=== PATIENT | female | born 1990 | race Caucasian/White ===

== ENCOUNTER 2022-05-06 20:29 | Outpatient (CLI) | payer BC, SELFPAY ==
[2022-05-06] VITALS (16 sets, daily range): BP systolic 128–143; BP diastolic 60–72; PULSE 63–78; RESP 18; TEMP 36.8; O2SAT 97–98
--- OUTSIDE RECORDS SUMMARY | 2022-05-06 20:34 | XMS_ITS | Clinical Summary ---
:1990 Author Organization [facility] [place] [address] Care Team Providers Name Role Phone Yaima Doyle Primary Care Provider [phone] Marlene Santiago DO Unavailable Allergies No known active allergies Medications Medication Sig Dispensed Refills Start End Date Status Date [id number] Chew by 0 Active fish oil ( mouth. 2 Gummy) 400 mcg-35 mg -25 mg-5 mg chew famotidine (PEPCID) Take 1 90 Tablet 3 Active 40 mg Tablet (40 2 tabletIndications: mg) by mouth Gastroesophageal once daily. reflux disease, unspecified whether esophagitis present aspirin (ECOTRIN) 81 Take 1 90 Tablet 2 Active mg enteric coated Tablet (81 2 tabletIndications: mg) by mouth care in once daily first trimester with a meal. FLUoxetine (PROZAC) Take 1 90 Capsule 3 Active 40 mg Capsule (40 2 capsuleIndications: mg) by mouth Moderate episode of every recurrent major morning. depressive disorder (HC) miscellaneous medical As directed. 1 Each 0 Active supply (Blood BP cuff. 2 Pressure Cuff) miscIndications: headache in third trimester docusate (COLACE) 100 Take 1 60 Capsule 0 0 Discontinued mg Capsule (100 2 22 (*Med capsuleIndications: mg) by mouth complete/Regimen Constipation, acute 2 times complete/Level daily if of care ch soy) needed for Constipation . meclizine (ANTIVERT) Take 1 30 Tablet 0 04/13/20 Discontinued 25 mg Tablet (25 2 22 (*Med tabletIndications: mg) by mouth complete/Regimen Nausea and vomiting 3 times complete/Level during daily if of care change) needed for Nausea/Vomit ing. sucralfate (CARAFATE) Take 1 120 Tablet 3 0 Discontinued 1 gram Tablet (1 g) 2 22 (*Med tabletIndications: by mouth 4 complete/Regimen Gastroesophageal times daily c omplete/Level reflux in before meals of care change) and at bedtime. Active Problems Problem Noted Date Maternal morbid obesity in second trimester, antepartu m 02/16/2022 COVID-19 affecting , antepartum 02/16/2022 Pap smear for cervical cancer screening 12/30/2021 Overview: 12/2021 NIL/ HPV negative. Plan: pap/ hpv due 12/2026 care in first trimester 12/14/2021 Overview: Formatting of this note is dif ferent from the original. DU by 7wk2d US (unsure LMP) Level 2US with echocardiogram ordered du e to BMI. Anesthesiology and OB consults ordered d ue to BMI MPP recommended Growth ultrasounds at 28 and 34 weeks due to BMI greater than 40. Growth US 30wks: Estimated weight 97th percentile. BPD greater than 98th percentile. -Weekly BPP/NSTs starting at 32 weeks. Patient declined COVID-19 vaccine. Repor ts she had mild COVID-19 beginning in November. Estimated Date of Delivery: 07/06/22 Patient's last menstrual period was 03/0 11/2021 (approximate). Last Tdap- 04/13/2022 Last Flu vaccine- 05/15/2015 Glucose (GTT) result- Component Latest Ref Rng & Units 04/13/2022 HEMOGLOBIN 12.0 - 16.0 g/dL 11.8 (L) MCV 80 - 100 fL 89 GLUCOSE,GESTATIONAL 65 - 140 mg/dL 131 TREPONEMA PALLIDUM Negative Negative 20 week US: IMPRESSION: Intrauterine at 20w 0d. presentation is Breech. EFW 374 grams, percentile: 81. Growth parameters and estimated we ight are appropriate for gestational age. No major structural anomalies identified . No markers for aneuploidy identified. The echocardiogram was read by MPP as normal. Normal Deepest Vertical Pocket of amniot ic fluid: 4.9 cm. Placental location: Anterior There is no evidence of placenta previa. The cervical length is 4.18 cm. ?? RECOMMENDATIONS: -Return to primary provider for continue d care. -No alterations in the delivery plan are necessary. -The option of amniocentesis was present ed. -Growth ultrasounds at 28 and 34 weeks d ue to BMI greater than 40. -Weekly BPP/NSTs starting at 32 weeks. -Orders were placed to schedule the rosa mmended follow up with MPP, if desired. The patient will discuss with her primary provider a t the next OB visit. No Known Allergies OB History Para Term AB Living 4 3 3 0 0 3 SAB IAB Ectopic Multiple Live Births 0 0 0 0 3 # Outcome Date GA Lbr Adrián/2nd Weight Sex Delivery Anes PTL Lv 4 Current 3 Term 07/23/15 40w2d 3.23 kg (7 lb 2 oz ) M Vag KARLA 2 Term 10/17/13 40w0d 3.49 kg (7 lb 11 o z) M Vag EPIDURAL N KARLA 1 Term 08/31/09 40w4d 3.46 kg (7 lb 10 o z) M Vag EPIDURAL N KARLA Create lab flowsheet for OB labs- Component Latest Ref Rng & Units 12/14/2021 022 12/14/2021 12:02 PM 12:02 PM 12:02 PM ANTIBODY SCREEN Negative Negative SPECIMEN EXPIRATION DATE/TIME 12/17/21 23:59 HEMOGLOBIN 12.0 - 16.0 g/dL 12.8 MCV 80 - 100 fL 90 RUBELLA IGG ANTIBODY Positive 1.14 CHLAMYDIA PROBE N GONORRHOEAE PROBE TREPONEMA PALLIDUM Negative Negative ABORH A Rh Positive HIV-1/HIV-2 ANTIBODY Non-Reactive Non-Reactive HBSAG Nonreactive Nonreactive Component Latest Ref Rng & Units 12/14/2021 12:06 PM ANTIBODY SCREEN Negative SPECIMEN EXPIRATION DATE/TIME HEMOGLOBIN 12.0 - 16.0 g/dL MCV 80 - 100 fL RUBELLA IGG ANTIBODY CHLAMYDIA PROBE Negative N GONORRHOEAE PROBE Negative TREPONEMA PALLIDUM Negative ABORH HIV-1/HIV-2 ANTIBODY Non-Reactive HBSAG Nonreactive Past Medical History: . Date ? ? Depression ? ? Morbid obesity with BMI of 40.0-44.9, adult (HC) 10/23/2014 ? ? Tobacco use disorder 12/06/2014 Past Surgical History: . Laterality Date ? ? NO PREVIOUS SURGERY No data on file. Problems (from 12/14/21 to pre sent) No problems associated with this episod krystin Rod RN.....12/17/2021 8:14 AM ELMER 02/04/2016 AHI-12 05/06/2016 Morbid obesity with BMI of 40.0-44.9, adult 10/23/2014 Encounter for supervision of normal in multi 04/17/2013 Major depression, recurrent 03/01/2011 Estimated Date of Delivery Comments Yes 07/06/2022 Based on Ultrasound Resolved Problems Problem Noted Date Resolved Date Tobacco use disorder 12/06/2014 12/14/2021 Supervision of normal first 05/08/2009 Encounters Date Type Specialty Care Team Description 04/27/2022 OB Encounter Marlene Santiago [facility] (30w) DO 04/27/2022 Travel 04/20/2022 Ancillary Procedure 04/20/2022 Travel 04/13/2022 OB Encounter Marlene [facility] (28 wks); DO Medication List Update (Not taking flu oxetine daily) 04/13/2022 Orders Only Lab, [facility] 04/13/2022 Travel 03/12/2022 OB Encounter Marlene [facility] (23 wks 3 DO days) 03/12/2022 Travel 02/16/2022 Hospital Encounter Marlene Santiago M aternal morbid obesity in second trimester, antepartum (HC) (Primary Dx); DO High-risk pregn nancy in second trimester; COVID-19 affect ing , antepartum 02/04/2022 OB Encounter Mar[facility] (18w2d) DO 02/04/2022 Travel from Last 3 Months Immunizations Name Administration Dates Next Due Hepatitis B (Peds) 04/12/2005 Influenza A (H1N1), Inactivated 05/27/2009 Influenza, IIV3 (Age >=3 years) 05/01/2012, 07/13/2010 Influenza, IIV4 05/15/2015, 04/22/2014 MMR 10/18/2013 Tdap 04/13/2022, 05/15/2015, 07/30/2013, 05/01/2012 Family History Medical History Relation Name Comments Cancer Maternal Grandfather lung Cancer Maternal Grandmother lung Diabetes Maternal Grandmother Hypertension Maternal Grandmother Relation Name Status Comments Maternal Grandfather Maternal Grandmother Social History Tobacco Use Types Packs/Day Years Used Date Former Smoker Cigarettes 0.5 Quit: 09/08/19 17 Smokeless Tobacco: Never Used Tobacco Cessation: Counseling Given: Yes Alcohol Use Standard Drinks/Week Comments Not Currently 0 (1 standard drink = 0.6 oz pure alcoho l) Alcohol Habits Answer Date Recorded How often do you have a drink containing alcohol? Monthly or less 12/27/2019 How many drinks containing alcohol do you have on a Not aske d typical day when you are drinking? How often do you have six or more drinks on one Not asked occasion? Comment: Not asked Estimated Date of Delivery Comments Yes 07/06/2022 Based on Ultrasound Sex Assigned at Date Recorded Not on file COVID-19 Exposure Response Date Recorded In the last 10 days, have you been in contact with No / Unsu re 04/27/2022 10:08 AM CDT someone who was confirmed or suspected to have Coronavirus/COVID-19? Obstetrics History Para Term AB IAB SAB Ectopic Multiple Living Live Births 4 3 3 3 3 Date Outcome GA Total Labor/2nd/3rd Weight Sex Delivery Anes PTL Karla A 1 A5 Name Clin Labor 08/31 Term 40w 3.46 kg M Vag Epidu N Betty /2009 4d (7 lb ral ng 10 oz) Complications: None 10/17/2013 Term 40w0d 3.49 kg (7 lb 11 oz) M Vag Epidural N Living Complications: None 07/23/2015 Term 40w2d 3.23 kg (7 lb 2 oz) M Vag Karla ing Current OB Episode Summary Episode Dates Estimated Date of Pregravid Weight TWG (As of ) Delivery 12/14/2021 - Present 07/06/2022 108.9 kg (240 lb) 9.57 kg ( 21 lb 1.6 oz) (05/06/2022) Date GA Fund Present FHR Mvmt BP Weight Edema Alb Glu Ket Dil/Eff/S ta 02/16/2022 20w0d Inpatient data not d isplayed here. See encounter summary. Progress Notes 04/27/2022 - 30w0d - Marlene Santiago , DO Here for routine visit. Concerns today: worried about large baby --recent US showed 97th percentile. She is worried will need c/s. Discussed EFW, accuracy of US and need for follow up imaging. Discussed indications for c/s vs t rial vaginal delivery. Will further disc uss after next US. Is already scheduled for 34wk follow up growth US. Had recent GTT that was negative but borderline at 131. Plan recheck GTT in 4 more weeks. Getting left sciatica pain. PHYSICAL THE RAPY ordered Fluoxetine: trying to be better at takin g regularly. Now taking better, missing 1-2 days a week now. Feels like mood 'little bit better' Headaches continues daily. Has had for y ears 'even before ' same as prior to she says. Takes tylenol and sometimes works. No vision changes. no abdominal pain. Headaches same as prior to she and report--reviewed if headaches changing, worsening or other symptoms, needs evaluated. Home blood pressure monitoring reviewed. Good FM. Got Blood pressure cuff and checking 137 /74 last Tue. Says hard to check as constantly going. [facility] recommended Growth ultrasounds at 28 and 34 weeks due to BMI greater than 40. Recent US 04/20/22 with estimated weight 97th percentile. BPD greater than 98th percentile.: has another growth US at 34 weeks. -Weekly BPP/NSTs starting at 32 weeks. Already had her anesthesiology consult. Warning and labor s/s reviewed. Typical remaining course reviewed. Follow up in 2 weeks with BPP, sooner if needed. We will repeat GTT in 4 more weeks as well 04/13/2022 - w0d - Marlene Santiago , DO Here for routine visit. Feels tired and emotional. Gets irritabl e quicker. Feels down and little things can make make cry. No SI. reports she is not great at taking her fluoxetine, maybe takes once a week at least. Discussed ways to try and remember to take daily. Reviewed importance of taking daily to help with her mood/irritability. Headaches daily. Tylenol sometimes helps . Says not drink much water. No vision changes. Discussed headaches in and if persistent, worsening or not typical for her, let us know. Reviewed hypert ension and preeclampsia are main concern s in . Will have her get BP cuff and start checking. See patient instructions No ctxs. Getting pubic bone pain she says. Discus sed. On exam, pubic bone was ttp. Kick counts discussed. TdaP today Declines flu shot. discussed recommendat ion to get and why we recommend and she declines MPP recs Growth ultrasounds at 28 and 34 weeks due to BMI greater than 40. US is scheduled for next week. -Weekly BPP/NSTs starting at 32 weeks. Will need anesthesiology consult arrange d at next visit. No longer required to have [facility] consult at [facility] unless BMI>50 Follow up 4wks, sooner if needed 03/12/2022 - 23w3d - Marlene Santiago , Here for visit. Had level 2 US and echocardiogram due t o BMI. MPP note reviewed and recommended: MPP recs Growth ultrasounds at 28 and 34 weeks due to BMI greater than 40. -Weekly BPP/NSTs starting at 32 weeks. I ordered and gave patient scheduling sh eet to get these scheduled today. Gets headaches when not and 'ab out same' now . Can get every other day day. Tylenol sometimes helps. Says not drink much water. No vision changes. Discussed headaches in and i f persistent, worsening or not typical f or her, let us know. Reviewed hypertension and preeclampsia are main concerns in after 24 weeks. Some suprapubic pain with walking only. +pubic symphysis ttp. No ctxs or bleeding. No RUQ pain. Good FM GTT and labs at next apt. Confirmed A+ Warning and labor s/s reviewed. Typical remaining course reviewed. Follow up 4wks with GTT/labs, sooner if needed 02/16/2022 - 20w0d - Ofelia Mata MD [facility] Ultrasound 02/16/22 Your patient had an ultrasound with [facility] on 02/16/22 The report is ready and can be found in the [facility]. The Impression from the report is below. Thank you for the opportunity to partici jose in the care of this josette patient. Ofelia Mata MD ............. ....... 02/16/2022 2:15 PM Referred By: MARLENE SANTIAGO DO Indications Code 20 weeks gestation of Z3A.20 Declined genetic screening BMI > 40 GERD, ELMER, depression *fluoxetine, caraf ate, famotidine COVID+ beginning of November 2021 Detailed & MPPE IMPRESSION: Intrauterine at 20w 0d. presentation is Breech. EFW 374 grams, percentile: 81. Growth parameters and estimated we ight are appropriate for gestational age. No major structural anomalies identified . No markers for aneuploidy identified. The echocardiogram was read by MPP as normal. Normal Deepest Vertical Pocket of amniot ic fluid: 4.9 cm. Placental location: Anterior There is no evidence of placenta previa. The cervical length is 4.18 cm. RECOMMENDATIONS: -Return to primary provider for continue d care. -No alterations in the delivery plan are necessary. -The option of amniocentesis was present ed. -Growth ultrasounds at 28 and 34 weeks d ue to BMI greater than 40. -Weekly BPP/NSTs starting at 32 weeks. -Orders were placed to schedule the rosa mmended follow up with [facility], if desired. The patient will discuss with her primary provider at the next OB visit. CONSULT: Present findings are reassuring. The pat ient was seen by the Perinatologist today. The previous ultrasound and the record was reviewed. The results of the ultrasound were communicated to the pa hector. The risks specific to morbid obes ity, including macrosomia, long labors, increased risk of IUFD, increased risk of Section and increased risk of anomalies were discussed. A e chocardiogram was done today because of the increased risk of congenital heart defects in babies of women with a BMI over 40. Growth ultrasounds at 28 weeks and 34 weeks will allow screening for growth abnormalities. Alternatives available for detecting fet al anomalies, aneuploidy and predicting developmental outcome for this were thoroughly discussed. The risks, benefits and limitations of maternal serum screening, ultrasound, and genetic amnio centesis were reviewed as needed with the patient. At the conclusion of our visit the patient declined any further genetic testing, being satisfied by the risk reduction of today's normal ultrasound study. New government regulations related to Cures act require that this note be released to the patient immediately, sometimes before the referring provider has been contacted. A portion of t he information was presented verbally to the patient. The remainder is submitted as background for the referring provider, to be discussed as needed. Medical Decision Making: Low Complexity 39116 Limited Diagnoses including two minor p roblems, with BMI>40. Moderate Data including review of prior ultrasound and review of prior external notes, ordering additional ultrasound/testing Low risk of morbidity or mortality to t he fetus from amniocentesis which was considered and declined. Services Provided: Procedures Code DETAIL ANATOMY & MPP ECHO 31376.0 ECHO REPORT: Normal Echocardiogram COMMENT The results of the echocardiogram were discussed with the parents. echocardiograms can not rule out some ventricular septal defects, persistent patent ductus arteriosus, atrial septal defect , some abnormalities of systemic and pul monary venous return, coarctation of the aorta, and minor valve abnormalities. Services Provided: Procedures Code US ECHOCARDIOGRAM 10027.0 US DOPPLER COLOR FLOW VELOCITY MAP 79847 .0 02/04/2022 - 18wkika - Marlene Santiago , DO Here for visit. Concerns: getting what sounds classic ro und ligament pain. Discussed. Nausea is better. Acid reflux, taking pepcid. Could try ca rafate and previously prescribed. Stopped working due to back she says. Hi story back problems and says was going to get injections but then got . Offered PHYSICAL THERAPY but says already tried. Taking tylenol as needed. Fluoxetine was started. Feels like just wants to lay in bed. Not feel depressed, just tired but wonders if could be her depression. Discussed importance staying active. Patient in agreement with increasing fluoxetine as previously was on 40mg. Baby aspirin previously discussed. She d id start this. Level 2 US with echocardiogram scheduled previously with perinatology for around 20-22wks due to body mass index. Discussed protocol at hospital for anest hesiology and ob consults in future due to BMI. These were ordered. She is not vaccinated for COVID-19. Revi ew reasons we recommend vaccination in and risks of COVID-19 in . She is not interested in COVID-19 vaccine. Reports she had COVID-19 previousl y in Jul and again this past November while kianna bernabe. Weight gain in reviewed. Follow up 4 weeks, sooner if needed 01/04/2022 - 13w6d - Marlene Santiago DO Here for routine visit. Nausea improving. No vomiting. Getting acid reflux. Not taking carafate prescribed--forgets. Big pills. Will start pepcid. No bleeding or abdominal pain. Thought maybe felt kick once. Keeps forgetting to take fluoxetine. Not really taking. Does feel very tired. says not that irritable lately. PHQ and HARMEET do show improvement. Discussed it is up if she wants to take the fluoxetine. She did not have any ?'s. Needs Pap smear today. no history abnorm al's. exam: Normal external genitalia. Urethra normal. Vaginal mucosa within normal limits. Cervix within normal limits. Pap smear obtained. Baby aspirin discussed. Reviewed reasons for recommendation and importance starting prior to 16wks. Discussed BMI and recommend for level 2 US with echocardiogram with perinatology. This was ordered for around 20-22wks. Need to also discuss protocol at [facility] for anesthesiology and ob consults in future due to BMI She is not vaccinated for COVID-19 and w e need to further review reasons we recommend vaccination in Warning and labor s/s reviewed. Typical remaining course reviewed. Follow up 4wks, sooner if needed 12/14/2021 - 10w6d - Marlene Santiago , FIRST OB VISIT HPI: Ely Rice is a 31 y.o. female at 10w2d with lofton intrauterine here today for a initial OB exam. She is here with Yogi who is FOC. This is their second child together. 2 prior to that so has 3 boys. Youngest is 6. Other two 8 and 12yo. Still nausous. Takes meclizine in evenin g. Not vomiting. Thinks staying hydrated. 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 Having acid reflux. Taking omeprazole. R eflux worse with Taking otc prenatals she prefers. Quit smoking 5 years ago. Estimated due date is Estimated Date of Delivery: 07/10/22 based on LMP. Nausea/Vomiting: yes Breast tenderness: yes Fatigue: yes Bleeding: no Taking vitamins: yes Options of sequential screen, cell-free DNA testing, amniocentesis were discussed. Patient will check with insurance if interested in pursuing testing. AMA: no Previous : no MENSTRUAL HISTORY LMP:Patient's last menstrual period was unsure. 'best guess October 03' she is uncertain but usually at beginning of month. Menses Every: regular, usually beginning of month. Menstrual cycle lasts: 5 days Menstrual Flow: normal Control at the time of conception: none. 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 overdue for Pap smear No history of STIs OB History Para Term AB Living 4 3 3 3 SAB IAB Ectopic Multiple Live Births 3 # Outcome Date GA Lbr Adrián/2nd Weight Sex Delivery Anes PTL Lv 4 Current 3 Term 07/23/15 40w2d 3.23 kg (7 lb 2 oz ) M Vag KARLA 2 Term 10/17/13 40w0d 3.49 kg (7 lb 11 o z) M Vag EPIDURAL N KARLA 1 Term 08/31/09 40w4d 3.46 kg (7 lb 10 o z) M Vag EPIDURAL N KARLA First says 'I was bleeding so I went in and they kept me' Broke water and she went into labor. was induced as did not want to miss Chri stmas she says. 2nd thought baby might be eduardo er so induced. 3rd says was induced as did no t want to miss Dean she says. Was OP until end she says. Then flipped and delivered. Past Medical History: . Date ? ? Depression ? ? Morbid obesity with BMI of 40.0-44.9, adult (HC) 10/23/2014 ? ? Tobacco use disorder 12/06/2014 No history MRSA or resistant infections Past Surgical History: . Laterality Date ? ? NO PREVIOUS SURGERY Family History Problem Relation Age of Onset ? ? Cancer Maternal Grandmother lung ? ? Diabetes Maternal Grandmother ? ? Hypertension Maternal Grandmother ? ? Cancer Maternal Grandfather lung Social History Tobacco Use ? ? Smoking status: Former Smoker Packs/day: 0.50 Types: Cigarettes Quit date: 09/08/2016 Years since quittin.2 ? ? Smokeless tobacco: Never Used Substance Use Topics ? ? Alcohol use: Not Currently Alcohol/week: 0.0 standard drinks Current Outpatient Medications Medication Sig ? ? docusate (COLACE) 100 mg capsule Take 1 Capsule (100 mg) by mouth 2 times daily if needed for Constipation. ? ? FLUoxetine (PROZAC) 20 mg capsule Take 1 Capsule (20 mg) by mouth every morning. ? ? meclizine (ANTIVERT) 25 mg tablet Take 1 Tablet (25 mg) by mouth 3 times daily if needed for Nausea/Vomiting. ? ? [id number]-[id number] oil ( Gummy) 400 mcg-35 mg -25 mg-5 mg chew Chew by mouth. ? ? sucralfate (CARAFATE) 1 gram tablet Take 1 Tablet (1 g) by mouth 4 times daily before meals and at bedtime. No current facility-administered medicat ions for this visit. Medications have been reviewed by me and are current to the best of my knowledge and ability. ALLERGIES Patient has no known allergies. MENTAL HEALTH HISTORY History of psychiatric diagnosis: Depres jose alfredo and anxiety. Had depression after 2nd . Not take anything for it. 'first and third was fine.' Current mental health provider: No but h as in past. Currently taking any psychiatric medicat ions: No stopped her fluoxetine prior to as felt like giving headaches once increased to 60mg and says 'always had trouble remembering to take'. When in creased to 60mg headaches started. has t ried other medications she says and per chart tried celexa, lexapro, sertraline, venlafaxine, wellbutrin. Patient says those did not work. 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 After about 6months, kids came back to live wi th them. No issues since except one of the other sons was having behavior issues in school about a year ago and the counselor notified CPS but they apparently cam e to house and then decided to close dominic e and nothing came of it. Kids of been with them for last few years. HARMEET-7 ANXIETY SCREENING 03/02/2021 12/15/19 22 HARMEET date (doc flow) 03/02/2021 12/14/2021 Nervous, anxious 2 2 Cannot stop worrying 2 2 Worry about different things 2 2 Cannot relax 2 2 Feeling restless 1 2 Easily annoyed/irritated 3 2 Afraid of awful event 2 2 Score 14 14 Severity moderate anxiety moderate anxie ty Some recent data might be hidden PHQ Depression Screening 03/02/2021 022 Date of PHQ exam (doc flow) 03/02/202111/29 1. Lack of interest/pleasure 2 - More th an half the days 2 - More than half the days 2. Feeling down/depressed 2 - More than half the days 2 - More than half the days PHQ-2 TOTAL SCORE 4 4 3. Trouble sleeping 3 - Nearly every day 2 - More than half the days 4. Decreased energy 3 - Nearly every day 2 - More than half the days 5. Appetite change 3 - Nearly every day 2 - More than half the days 6. Feelings of failure 2 - More than obdulio f the days 2 - More than half the days 7. Trouble concentrating 1 - Several day s 1 - Several days 8. Activity level 0 - Not at all 0 - Not at all 9. Hurting yourself 0 - Not at all 0 - N ot at all PHQ-9 TOTAL SCORE 16 13 PHQ-9 Severity Level moderately severe m oderate Functional Impairment very difficult ju ewhat difficult Some recent data might be hidden REVIEW OF SYSTEMS Comprehensive ROS complete and negative other than noted in HPI and on OB Questionnaire. PHYSICAL EXAM BP 111/75 (Cuff Site: Right Arm, Positio n: Sitting, Cuff Size: Adult Large) Pulse 70 Wt 111.6 kg (246 lb) LMP 10/03/2021 (Approximate) SpO2 98% No BMI 43.58 kg/m?? General: Pleasant female in no acute dis tress, alert and appropriate HEENT: wearing mask Neck: No lymphadenopathy or thyromegaly Heart: Regular rate and rhythm Lungs: Clear tissue bilaterally deferred to next apt Extremities: No edema Skin: No concerning lesions Psych: normal affect Ultrasound #1: on 11/19/21 = 7w2d IUP DU: DU at 07/16/22 by 7wk US as LMP un sure ASSESSMENT/PLAN Normal first visit. 1. Discussed orientation,general information,lifestyle,nutrition,exercise,warning signs,resources,lab testing,risk screening. Questions answered. 2. Typical remaining course rev iewed. 3. Labor signs/warning signs reviewed. 4. Appropriate weight gain during pregna ncy and healthy eating/exercise reviewed at length. 5. Ultrasound for dating reviewed--will change DU to US dating due to unsure LMP 6. labs ordered. 7. discussed risks risk screening. The a re not currently interested but cane let me know if that changes. Discussed [place] and checking with insurance. 8. Obesity: discussed with BMI > 40 rosa mmend level 2 US with echocardiogram around 20wks and growth US around 28-32 weeks typically recommended. Will also need to talk about anesthesiology and OB consults which are recommended per L&D protocol. 9. Depression/anxiety: previously tried multiple medications as above--only felt like fluoxetine helped--see above history. Discussed there are risks vs benefits vs SSRI's in but overall felt to be safe in and there are ri sks of untreated anxiety and depression. She was interested in restarting. Will start 20mg daily. Recheck PHQ/HARMEET at follow up 10. History CPS involvement as above: di scussed with their hx with CPS involvement will let [facility] [employer] know about new and verify there is nothing we need to do now that she is pre gnant again. I did call and tell [facility] social media designer that patient is . I do not currently have particular concerns except thought with history of CPS involvement should let them know she was . 11. due for Pap smear next time however we went over on time today so will defer until next apt. 12: t/c low dose aspirin prior 16wks wit h two RF's (obesity and socioeconomic status) Followup in 4 weeks with Pap smear and a nxiety/depression follow up as well, sooner if needed ASPIRIN CANDIDATE EVALUATION One or more of the following: ?? Previous with preeclampsia, es pecially early onset and with and adverse outcome. Multifetal gestation Chronic hypertension Type 1 or 2 diabetes Chronic kidney disease Autoimmune disease (antiphospholipid syn drome, systemic lupus erythematosus) ?? Two or more of the following: ?? Nulliparity Obesity (body mass index > 30 kg/m2) Family history of preeclampsia in mother or sister Age greater than or equal to 35 years Sociodemographic characteristics (Maribel n Sudanese, low socioeconomic level) Personal risk factors (eg, history of lo w weight or small for gestational age, previous adverse outcome, > 10 year interval) Total time preparing to see this patient , [id number] time, and coordinating care time on the same calendar date: 63 minutes. ?? Last Filed Vital Signs Vital Sign Reading Time Taken Comments Blood Pressure 126/82 04/27/2022 10:17 AM CDT Pulse 79 04/27/2022 10:17 AM CDT Temperature 36.6 ??C (97.9 ??F) 11/05/2021 10:58 AM CDT Respiratory Rate 16 10/24/2020 12:50 PM CDT Oxygen Saturation 96% 04/27/2022 10:17 AM CDT Inhaled Oxygen Concentration - - Weight 118.4 kg (261 lb 1.6 oz) 04/27/2022 10:17 AM CDT Height 160 cm (5' 3) 11/17/2021 8:11 AM CDT Body Mass Index 46.25 11/17/2021 8:11 AM CDT Plan of Treatment Upcoming Encounters Date Type Specialty Care Team Description 05/11/2022 OB Encounter Marlene Santiago DO [address] [place], [place] [address] (Wo rk) 05/11/2022 Ancillary Procedure 05/18/2022 Ancillary Procedure 05/25/2022 Orders Only Lab, [place] 05/25/2022 OB Encounter Marlene Santiago DO [address] [place], [place] [address] (Wo rk) 05/25/2022 Ancillary Procedure 06/01/2022 Ancillary Procedure 06/08/2022 OB Encounter Marlene Santiago DO [address] [place] [address] (Wo rk) 06/08/2022 Ancillary Procedure 06/15/2022 OB Encounter Marlene Santiago DO [address] [place] [address] (Wo rk) 06/15/2022 Ancillary Procedure 06/22/2022 OB Encounter Marlene Santiago DO [address] [facility] [place] [address] (Wo rk) 06/22/2022 Ancillary Procedure 06/29/2022 OB Encounter Marlene Santiago DO [address] [facility] [place] [address] [phone] (Wo rk) 06/29/2022 Ancillary Procedure 07/06/2022 OB Encounter Marlene Santiago DO [address] [facility] [place] [address] (Wo rk) 07/06/2022 Ancillary Procedure Health Maintenance Due Date Last Done Comments COVID-19 vaccine series (#1) 1990 Influenza for age 9-49 04/01/2022 05/15/2015, 04/22/2014, 05/01/2012, Additional history exists BMI (ht and wt on same day) for 11/16/2022 11/16/2021, 10/30, age 18+ 06/10/2021, Additional history exists Depression screening for age 12+ 01/04/2023 01/04/2022, , 03/02/2021, Additional history exists Pap test for age 21-65 01/04/2027 01/04/2022, 01/04/2022, 04/17/2013, Additional history exists Tetanus booster 04/13/2032 04/13/2022, 05/15/2015, 07/30/2013, Additional history exists Hepatitis C screening for age Completed 11/20/2014 18-79 Tdap Completed 04/13/2022, 05/15/2015, 07/30/2013, Additional history exists Procedures Procedure Name Priority Date/Time Associated Comments Diagnosis US OB FOLLOW UP ANY TRI Routine 04/20/2022 10:20 care in Results for this SINGLE TA AM CDT second trimester procedure are in Obesity in the results section. TREPONEMA PALLIDUM Routine 04/13/2022 9:56 AM care in Results for this CDT second trimester procedure a re in the results section. HEMOGLOBIN Routine 04/13/2022 9:56 AM care in Resul ts for this CDT second trimester procedure a re in the results section. GLUCOSE,GESTATIONAL Routine 04/13/2022 9:56 AM care i n Results for this CDT second trimester procedure a re in the results section. US ECHOCARDIOGRAM Routine 02/16/2022 2:23 PM High-risk Results for this CDT in procedure are i n second trimester the results section. US OB DETAIL Routine 02/16/2022 2:23 PM High-risk Res ults for this ANATOMY SINGLE CDT in procedure are in second trimester the results section. from Last 3 Months Results US OB FOLLOW UP ANY TRI SINGLE TA (04/20/2022 10:20 AM CDT) Anatomical Region Laterality Modality , 2or 3 TRIMESTER Ult rasound Specimen (Source) Anatomical Collection Method Collection Time Re ceived Time Location / / Volume Laterality 04/20/2022 11:20 AM CDT Impressions 04/20/2022 11:20 AM CDT Sonographic gestational age 31 weeks 2 days and sonographic due date 06/20/2022. Sonographic age is 16 days ahead of the clinical age. Estimated weight 97th percentile. BPD greater than 98th percentile. Dictated by Justin Rose MD @ Apr 20 2 022 11:20AM (Electronically Signed) ?? Narrative 04/20/2022 11:20 AM CDT For Patients: ??As a result of the Cures Act, medical imaging exams and procedure report s are released immediately into your [facility] medical record. ??You may view this report before your referring provider. ??If you have questions, please contact your health care provider. INDICATION: Third trimester scan, evaluate growth. COMPARISON: 02/16/2022 TECHNIQUE: Real time alex scale imaging of the fetu s was performed as well as color Doppler and spectral Doppler analysis of the umbilical artery. FINDINGS: Sonographic imaging demonstrates a singl e living intrauterine gestation. ??Fetus demonstrates a regular cardiac rate of 146 beats per minute. ??Fetus has a vertex position. The placenta lies anteriorly without evidence of placenta previa. ??A mniotic fluid volume appears normal and there is a single deepest vertical pocket: 8.3 cm. The estimated weight is 1702gm which lies at the 97th %. ??On the prior OB ultrasound exam dated 02/17/20 22 the estimated weight was at the 85th%. BPD greater than 98th percentile. HC 65th percentile. AC 97th percentile. FL 64th percentile. The HC/AC ratio simon ures 1.01 range (0.99-1.21). There is ad equate diastolic blood flow within the umbilical artery. ??The S/D ratio measures 3.0. Procedure Note Justin Rose MD - 04/20/2022For matting of this note might be different from the original. For Patients: As a result of the Cures Act, medical imaging exams and procedure reports are released immediately into your electronic medical record. You may view this report before your referring provider. If you have questions, please contact yo health care provider. INDICATION: Third trimester scan, evaluate growth. COMPARISON: 02/16/2022 TECHNIQUE: Real time alex scale imaging of the fetu s was performed as well as color Doppler and spectral Doppler analysis of the umbilical artery. FINDINGS: Sonographic imaging demonstrates a singl e living intrauterine gestation. Fetus demonstrates a regular cardiac rate of 146 beats per minute. Fetus has a vertex position. The placenta lies anteriorly without evidence of placenta previa. Amniotic fluid volume a ppears normal and there is a single deepest vertical pocket: 8.3 cm. The estimated weight is 1702gm which lies at the 97th %. On the prior OB ultrasound exam dated 02/16/2022 the estimated weight wa s at the 85th%. BPD greater than 98th percentile. HC 65th percentile. AC 97th percentile. FL 64th percentile. The HC/AC ratio measures 1.01 range (0.99-1.21). There is adequate diastolic blood flow within the umbilical artery. The S/D ratio measures 3.0. IMPRESSION: Sonographic gestational age 31 weeks 2 d ays and sonographic due date 06/20/2022. Sonographic age is 16 days ahead of the clinical age. Estimated weight 97th percentile. BPD greater than 98th percentile. Dictated by Justin Rose MD @ Apr 20 2 022 11:20AM (Electronically Signed) Marlene Santiago DO US TREPONEMA PALLIDUM (04/13/2022 9:56 AM CDT) Analysis Performed At Patho logist Time Signature TREPONEMA Negative Negative 04/14/2022 [facility] PALLIDUM 11:14 AM CDT [facility] Specimen Anatomical Collection Method / Collection Time Recei bebo Time (Source) Location / Volume Laterality Blood BLOOD SPECIMEN / Venipuncture / 04/13/2022 9:56 2021 9:59 Unknown Unknown AM CDT AM CDT Marlene Santiago DO SEND OUTS Performing Organization Address City/State/ZIP Code Phon e Number [facility] [address] [place] [address] LABORATORY-[facility]EN[facility] 2000 LABORATORY (ABNORMAL) HEMOGLOBIN (04/13/2022 9:56 AM CDT) P athologist Signature HEMOGLOBIN 11.8 (L) 12.0 - 04/13/2022 [facility] 16.0 g/dL 10:05 AM CDT [facility] MCV 89 80 - 100 04/13/2022 [facility] fL 10:05 AM CDT [facility] Specimen Anatomical Collection Method / Collection Time Recei bebo Time (Source) Location / Volume Laterality Blood BLOOD SPECIMEN / Venipuncture / 04/13/2022 9:56 2021 9:59 Unknown Unknown AM CDT AM CDT Marlene [facility] Performing Organization Address City/State/ZIP Code Phon e Number [facility] [address] [place] [address] GLUCOSE,GESTATIONAL (04/13/2022 9:56 AM CDT) athologist Signature GLUCOSE,GESTAT 131 65 - 140 04/13/2022 [facility] IONAL mg/dL 10:08 AM CDT [facility] Specimen Anatomical Collection Method / Collection Time Recei bebo Time (Source) Location / Volume Laterality Blood BLOOD SPECIMEN / Venipuncture / 04/13/2022 9:56 2021 9:59 Unknown Unknown AM CDT AM CDT Marlene [facility] Performing Organization Address City/State/ZIP Code Phon e Number [facility] [address] [place] [address] US ECHOCARDIOGRAM (02/16/2022 2:23 PM CDT) Anatomical Region Laterality Modality HEART Ultrasound Specimen (Source) Anatomical Collection Method Collection Time Re ceived Time Location / / Volume Laterality 02/16/2022 2:21 PM CDT Narrative 02/16/2022 3:14 PM CDT Normal Echocardiogram COMMENT The results of the echocardiogram were discussed with the parents. ?? echocardiograms can not rule out some ventricular septa l defects, persistent patent ductus arteriosus, atrial septal defect, some abnormalities of sys temic and pulmonary venous return, coarctation of the aorta, and minor valve abnormalities. Services Provided: Procedures Code US ECHOCARDIOGRAM 40976.0 US DOPPLER COLOR FLOW VELOCITY MAP 34840 .0 Procedure Note Ofelia Mata MD - 02/16/2022 Normal Echocardiogram COMMENT The results of the echocardiogram were discussed with the parents. echocardiograms can not rule out some ventricular septa l defects, persistent patent ductus arteriosus, atrial septal defect, some abnormalities of sys temic and pulmonary venous return, coarctation of the aorta, and minor valve abnormalities. Services Provided: ProceduresCode US [id number] US DOPPLER COLOR FLOW VELOCITY [id number]. 0 Marlene Santiago DO US US OB DETAIL ANATOMY SINGLE (02/16/2022 2:23 PM CDT) Anatomical Region Laterality Modality , 2or 3 TRIMESTER Ult rasound Specimen (Source) Anatomical Collection Method Collection Time Re ceived Time Location / / Volume Laterality 02/16/2022 2:18 PM CDT Narrative 02/16/2022 3:15 PM CDT Referred By: MARLENE ??JOHNNY ??DO ? Indications Code 20 weeks gestation of Z3A.20 Declined genetic screening BMI > 40 GERD, ELMER, depression *fluoxetine, caraf ate, famotidine COVID+ ??beginning of November 2021 Detailed & MPPE IMPRESSION: Intrauterine at 20w 0d. presentation is Breech. EFW 374 grams, percentile: 81. ?? Growth parameters and estimated we ight are appropriate for gestational age. ? No major structural anomalies identified . No markers for aneuploidy identified. The echocardiogram was read by MPP as normal. Normal Deepest Vertical Pocket of amniot ic fluid: 4.9 cm. Placental location: Anterior There is no evidence of placenta previa. The cervical length is 4.18 cm. ?? RECOMMENDATIONS: -Return to primary provider for continue d care. -No alterations in the delivery plan are necessary. -The option of amniocentesis was present ed. -Growth ultrasounds at 28 and 34 weeks d ue to BMI greater than 40. -Weekly BPP/NSTs starting at 32 weeks. -Orders were placed to schedule the rosa mmended follow up with MPP, if desired. The patient will discuss with her primary provider a t the next OB visit. CONSULT: Present findings are reassuring. ??The p atient was seen by the Perinatologist today. ??The previous ultrasound and the rec ord was reviewed. ??The results of the ultrasound were communicated to the patient. The risks s pecific to morbid obesity, including macrosomia, long labors, increased risk of IUFD, increase d risk of Section and increased risk of anomalies were discussed. A echoca rdiogram was done today because of the increased risk of congenital heart defects in babies of women with a BMI over 40. Growth ultrasounds at 28 weeks and 34 weeks will allow screening for growth abnormalities. ?? Alternatives available for detecting fet al anomalies, aneuploidy and predicting developmental outcome for this were thorough ly discussed. ??The risks, benefits and limitations of maternal serum screening, ultrasound, an d genetic amniocentesis were reviewed as needed with the patient. ??At the conclusion of our visit the patient declined any further genetic testing, being satisfied by the risk reduction of today's normal ultrasound study. New government regulations related to Cures act require that this note be released to the patient immediately, ju etimes before the referring provider has been contacted. ??A portion of the informatio n was presented verbally to the patient. ??The remainder is submitted as background for the refer ring provider, to be discussed as needed. Medical Decision Making: Low Complexity 06680 ?Limited Diagnoses including two mi nor problems, with BMI>40. ?Moderate Data including review of prior ultrasound and review of prior external notes, ordering additional ultrasound/testing ?Low risk of morbidity or mortality to the fetus from amniocentesis which was considered and declined. Services Provided: Procedures Code DETAIL ANATOMY & [facility] ECHO 12423.0 Procedure Note Ofelia Mata MD - 02/16/2022 Referred By: MARLENE SANTIAGO DO IndicationsCode 20 weeks gestation of [id number] Declined genetic screening BMI > 40 GERD, ELMER, depression *fluoxetine, caraf ate, famotidine COVID+ beginning of November 2021 Detailed & MPPE IMPRESSION: Intrauterine at 20w 0d. presentation is Breech. EFW 374 grams, percentile: 81. Growth parameters and estimated we ight are appropriate for gestational age. No major structural anomalies identified . No markers for aneuploidy identified. The echocardiogram was read by MPP as normal. Normal Deepest Vertical Pocket of amniot ic fluid: 4.9 cm. Placental location: Anterior There is no evidence of placenta previa. The cervical length is 4.18 cm. RECOMMENDATIONS: -Return to primary provider for continue d care. -No alterations in the delivery plan are necessary. -The option of amniocentesis was present ed. -Growth ultrasounds at 28 and 34 weeks d ue to BMI greater than 40. -Weekly BPP/NSTs starting at 32 weeks. -Orders were placed to schedule the rosa mmended follow up with MPP, if desired. The patient will discuss with her primary provider a t the next OB visit. CONSULT: Present findings are reassuring. The pat ient was seen by the Perinatologist today. The previous ultrasound and the rec ord was reviewed. The results of the ultrasound were communicated to the patient. The risks s pecific to morbid obesity, including macrosomia, long labors, increased risk of IUFD, increase d risk of Section and increased risk of anomalies were discussed. A echoca rdiogram was done today because of the increased risk of congenital heart defects in babies of women with a BMI over 40. Growth ultrasounds at 28 weeks and 34 weeks will allow screening for growth abnormalities. Alternatives available for detecting fet al anomalies, aneuploidy and predicting developmental outcome for this were thorough ly discussed. The risks, benefits and limitations of maternal serum screening, ultrasound, an d genetic amniocentesis were reviewed as needed with the patient. At the conclusion of our vi sit the patient declined any further genetic testing, being satisfied by the risk reduction of today's normal ultrasound study. New government regulations related to Cures act require that this note be released to the patient immediately, ju etimes before the referring provider has been contacted. A portion of the information was presented verbally to the patient. The remainder is submitted as background for the refer ring provider, to be discussed as needed. Medical Decision Making: Low Complexity 70115 Limited Diagnoses including two minor p roblems, with BMI>40. Moderate Data including review of prior ultrasound and review of prior external notes, ordering additional ultrasound/testing Low risk of morbidity or mortality to t he fetus from amniocentesis which was considered and declined. Services Provided: ProceduresCode DETAIL ANATOMY & [facility]PP [id number] Marlene Santiago DO US from Last 3 Months Insurance Payer Benefit Plan / Subscriber ID Effective Dates Phone Addre ss Type Group MEDICA [place] MEDICA CHOICE [id number] 2013-Present [address] [address] [place] [address] [employer] [place] [employer] [id number] 2019-Present [address] [place] [id number] Ely Rice Personal/Family Self 1990 [address] ([address]) [place] [id number] Advance Directives Latest Code Status on File Code Status Date Activated Date Inactivated Comments Full Code 10/16/2013 10:46 PM 10/17/2013 11:16 PM Full Code 10/16/2013 2:33 PM 10/16/2013 10:46 PM Care Teams Physics Technical Officer Relationship Specialty Start Date End Date Yaima Doyle PA PCP - General Family Practice 02/04/[address] [place] [address] Marlene Santiago DO Referring Provider Family Practice 01/04/[address] [place] [address] [address]
--- NOTE | 2022-05-06 21:35 | CRLHL7_ITS ---
For Patients: As a result of the Cures Act, medical imaging exams and procedure reports are released immediately into your electronic medical record. You may view this report before your referring provider. If you have questions, please contact your health care provider. INDICATION: Unable to obtain a nonstress test. COMPARISON: None available FINDINGS: Transabdominal examination of the is performed. A single intrauterine gestation is seen in cephalic presentation with regular cardiac activity at 128 beats per minute. The placenta is anterior and is free of the cervical os. The placental grade is I and the amniotic fluid volume is normal. The DVP is normal at 9.4 cm. ANNE normal at 13.9 cm. The biophysical profile score is 8/8 with no points off. IMPRESSION: Single intrauterine gestation in PRESENTATION presentation with regular cardiac activity. Normal DVP at DVP cm. Normal biophysical profile score of 8/8. Dictated by Jose A Gomez MD @ 05/06/2022 11:48:50 PM (Electronically Signed)
[2022-05-06 23:02] LABS: Total Protein Urine 8 mg/dL
[2022-05-06 23:03] LABS: Creatinine Urine 291.5 mg/dL
[2022-05-06 23:24] LABS: Hematocrit 34.6 % (33.0-51.0); Hemoglobin* 11.6 gm/dL (12.0-16.0); Mean Corpuscular HGB Conc 34 gm/dL (32-36); Mean Corpuscular Hemoglobin 30 pg (26-34); Mean Corpuscular Volume 89 fL (80-100); Platelet Count* 274 K/uL (140-440); White Blood Count* 10.72 K/uL (4.50-11.00)
[2022-05-06 23:27] LABS: Creatinine* 0.4 mg/dL (0.5-1.5); Estimated Glomerular Filt Rate 136 ml/min; INR 0.92 (0.91-1.10); Prothrombin Time 12.8 Seconds
[2022-05-06 23:28] LABS: Alanine Aminotransferase* 11 U/L (4-35); Aspartate Amino Transferase* 18 U/L (12-35); Blood Urea Nitrogen* 7 mg/dL (5-24); Fibrinogen* 564 mg/dL (200-450); Slide Review Reflex No
[2022-05-07 00:08] VITALS: BP 134/67; PULSE 64
[2022-05-07 00:23] VITALS: BP 134/72; PULSE 62
[2022-05-07 00:38] VITALS: BP 134/73; PULSE 68
--- NOTE | 2022-05-07 09:50 | PC.OBNST ---
NST Note NST Note Start: 05/06/22 20:47 Freq: ONCE Status: Active Protocol: Document 05/07/22 01:25 EGM (Rec: 05/07/22 09:50 EGM [id number]) NST Note 4 Para (# of births) 3 EDC 07/06/22 Gestational Age In Weeks & Days 31 Weeks & 3 Days Patient Presented with Complaint(s) of Decreased movement,Other Other Complaints BP 160/88 at home. Unable to get strip related to maternal size, movement, and anterior placenta. BPP was performed and was 03/08. TOLU Shaikh, RN RN Ken Walsh, TOLU OB NST charge Yes Complete NST Note via Write Note Yes The provider's electronic signature indicates the NST is reactive/appropriate for gestational age. *Note to provider: If an addendum is required, open the patient's chart and click on the note under the Nurse/Allied Health tab.
== END 2022-05-07 01:10 | disposition home or self-care (01) ==
LOC: OB OUT 20:31 → OB 20:42
PROVIDERS: Visit Provider Family Medicine
DX: O36.8130 Decreased fetal movements, third trimester, not applicable or unspecified (principal); Z3A.31 31 weeks gestation of pregnancy
CPT/HCPCS: 36415; 59025; 76819; 82565; 82570; 84156; 84450; 84460; 84520; 85027; 85384; 85610; 99213

== ENCOUNTER 2022-05-11 19:09 | Outpatient (CLI) | payer BC, SELFPAY ==
[2022-05-11] VITALS (9 sets, daily range): BP systolic 113–134; BP diastolic 57–66; PULSE 67–75
--- OUTSIDE RECORDS SUMMARY | 2022-05-11 19:11 | XMS_ITS | Clinical Summary ---
:1990 Author Organization [employer] [facility] [place] [address] Care Team Providers Name Role Phone Yaima Doyle Primary Care Provider [phone] Marlene Santiago DO Unavailable Allergies No known active allergies Medications Medication Sig Dispensed Refills Start End Date Status Date [id number] Chew by 0 Active -fish oil ( mouth. 2 Gummy) 400 mcg-35 mg -25 mg-5 mg chew famotidine (PEPCID) Take 1 Tablet 90 Tablet 3 Active 40 mg (40 mg) by 2 tabletIndications: mouth once Gastroesophageal daily. reflux disease, unspecified whether esophagitis present aspirin (ECOTRIN) 81 Take 1 Tablet 90 Tablet 2 Active mg enteric coated (81 mg) by 2 tabletIndications: mouth once care in daily with a first trimester meal. 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 1 Each 0 Act esdras medical supply BP cuff. 2 (Blood Pressure Cuff) miscIndications: headache in third trimester Graduated For personal 1 Packet 0 Active Compression use. Length: 2 StockingsIndications calf : Gestational Strength: hyperglycemia 16-20 mmHg medication order 1 Each 0 Act esdras composerIndications: support band 2 Gestational hyperglycemia docusate (COLACE) Take 1 60 Capsule 0 04/27/20 D iscontinued 100 mg Capsule (100 2 22 (*Med capsuleIndications: mg) by mouth complete/Regimen Constipation, acute 2 times daily complete/Level if needed for of car e change) Constipation. meclizine (ANTIVERT) Take 1 Tablet 30 Tablet 0 04/13 Discontinued 25 mg (25 mg) by 2 22 (*Med tabletIndications: mouth 3 times complete/Regimen Nausea and vomiting daily if complete/Level during needed for of care change) Nausea/Vomiti ng. sucralfate Take 1 Tablet 120 Tablet 3 04/27/20 Disc ontinued (CARAFATE) 1 gram (1 g) by 2 22 (* Med tabletIndications: mouth 4 times complete/Regimen Gastroesophageal daily before complete/Level reflux in meals and at of care change) bedtime. medication order 1 Each 0 05/07/20 Dis continued composerIndications: support band 2 22 (*Error/Order Gestational entry er ror) hyperglycemia Active Problems Problem Noted Date Gestational hyperglycemia 05/07/2022 Maternal morbid obesity in second trimester, antepartu [...] 97th percentile. BPD greater than 98th percentile. GESTATIONAL HYPERTENSION: diagnosed at 3 1wks. Getting weekly labs, BPP and office visits. Growth US q3-4wks. -Weekly BPP/NSTs starting at 32 weeks. Patient [...] aneuploidy identified. The echocardiogram was read by JE as normal. Normal Deepest Vertical Pocket of [...] schedule the rosa mmended follow up with [facility], if desired. The patient will discuss with [...] Date Type Specialty Care Team Description 05/11/2022 Ancillary Procedure Arrived 05/11/2022 OB Encounter Marlene Santiago Prenata l Care (32 weeks) DO 05/11/2022 Nurse Triage Yaima Doyle P HENRIQUE Mcbride (Headache) 05/10/2022 Orders Only Lab, [facility] 05/10/2022 Travel 05/07/2022 OB Encounter Marlene Santiago Pren[facility] l Care DO 05/07/2022 Orders Only Lab, [facility] 05/07/2022 Telephone Marlene Santiago, Medicat ion Management DO 05/07/2022 Travel 05/06/2022 Telephone Erlinda Oshea MD 04/27/2022 OB Encounter Marlene Santiago Prenata l [...] second trimester; COVID-19 affect ing , antepartum from Last 3 Months Immunizations Name Administration [...] in contact with No / Unsu re 05/10/2022 8:23 AM CDT someone who was confirmed or [...] - Present 07/06/2022 108.9 kg (240 lb) 10.5 kg ( 23 lb 1.6 oz) (05/11/2022) Date GA Fund Present FHR Mvmt BP Weight Edema Alb Glu Ket Dil/Eff/S ta 02/16/2022 20w0d Inpatient data not d isplayed here. See encounter summary. Progress Notes 05/11/2022 - 32w0d - Marlene Santiago , DO Here for routine care. Newly diagnosed gestational hypertension last week. Home blood pressure Sat after initially 160 but then she waited 5-10min and rechecked and 136/<90, she cannot remember exact number. Discussed bloo d pressure values and reasons to call [facility] after hours. Brought in 24 hour urine and was 114. We ekly labs today after visit. BPP today after this apt. Daily headaches unchanged for last sever al weeks/months. Not new or different. No RUQ pain. No ctxs. +FM. Emotionally feeling better and taking fl uoxetine more regularly. Plan induction at 37wks due to gestation al hypertension. She is currently scheduled for Jun 15, 7am. Likely pitocin or cytotec induction (depending on pitocin shortage status). Will arrange clinic apt for Nov 14 day prior. O/w continue with weekly office visit, labs and BPP. Warning and labor s/s reviewed. Typical remaining course reviewed. 05/07/2022 - 31w3d - Marlene Santiago , Was seen in L&D triage last night for el evated blood pressure. Patient reported at home blood pressure was 160/88. Per Dr Mcknight note: Initial blood pressure was 136/67. She h as history of chronic headaches and not having any change in her normal headache pattern. She is not having swelling or abdomen pain. Unable to get NST baby not s taying on monitor is very active. Biophy sical profile ordered 03/08 labs done. PCR 0 ALT AST reported as normal creatinine 0.4 Fibrinogen 564 (normal 200-450) Platelets 274 Hg 11.6 ?? Serial blood pressure had few blood pres sure reading which were higher. Highest blood pressure 143/66 with 2 other higher reading 142/66 and 141/68. These readings were less than 4 hours apart. Staff no jamarcus when patient having higher blood pre ssure was talking on phone. She had follow up blood pressure readings of 128/60 and 129/60. Last Blood pressures reported as 130/62 133/70 130/72. Patient was discharged home with close f ollow up for this morning in clinic with repeat labs. Patient reports she has not checked bloo d pressure since home from center. She gets daily headaches since prior to . No vision changes. No right upper quadrant pain. Good FM. Patient reports she was induced with her prior pregnancies but she has not had high blood pressure in before. She has been on baby aspirin since since prior 16wks for preeclampsia prophylaxis due to risk factors. Discussed gestation hypertension vs pree clampsia with patient and . She currently meets criteria for gestational hypertension. Discussed she will need at a minimum weekly clinic visits with [facility] blood pressure check, labs and BPP. L abs last night were okay and these were repeated today. Discussed s/s that would put her in severe range and importance being seen if these occur. Reviewed warning s/s and reasons to call Center/be seen. She will also need growth US q3-4wks and recently had one due to BMI Discussed likely induction at 37wks (tex und Jun 15). All ?'s answered. She has follow up next Tuesday with BPP already scheduled and will need labs then as well. Follow up sooner if needed 04/27/2022 - 30w0d - Marlene Santiago DO Here for routine visit. Concerns today: [...] Says hard to check as constantly going. [facility] recommended Growth ultrasounds at 28 and [...] 4 more weeks as well 04/13/2022 - 28w0d - Marlene Santiago , DO Here for [...] up 4wks, sooner if needed 03/12/2022 - w3d - Marlene Santiago , DO Here for visit. Had level 2 US [...] 02/16/2022 - 20w0d - Ofelia Mata MD [facility] Ultrasound 02/16/22 [facility] The report is ready and can be found in the Results review section of the [facility] chart. The Impression from the report is [...] schedule the rosa mmended follow up with [facility], if desired. The patient will discuss with her primary provider at the next OB visit. CONSULT: Present findings are reassuring. The pat ient was seen by the Perinatologist today. The previous ultrasound and the record was reviewed. The results of the ultrasound were communicated to the henrique young. The risks specific to morbid obes ity, [...] as needed. Medical Decision Making: Low Complexity 34897 Limited Diagnoses including two minor p roblems, with BMI>40. Moderate Data including review of prior ultrasound and review of prior external notes, ordering additional ultrasound/testing Low risk of morbidity or mortality to t he fetus from amniocentesis which was considered and declined. Services Provided: Procedures Code DETAIL ANATOMY & MPP ECHO 52767.0 ECHO REPORT: Normal Echocardiogram COMMENT The results of the echocardiogram were discussed with the parents. echocardiograms can not rule out some ventricular septal defects, persistent patent ductus arteriosus, atrial septal defect , some abnormalities of systemic and pul monary venous return, coarctation of the aorta, and minor valve abnormalities. Services Provided: Procedures Code US ECHOCARDIOGRAM 06089.0 US DOPPLER COLOR FLOW VELOCITY MAP 92001 .0 02/04/2022 - 18maximo - Marlene Santiago , DO Here for [...] body mass index. Discussed protocol at [facility] for anest hesiology and ob consults in [...] 20-22wks. Need to also discuss protocol at [facility] for anesthesiology and ob consults in future due to BMI She is not vaccinated for COVID-19 and w e need to further review reasons we recommend vaccination in Warning and labor s/s reviewed. Typical remaining course reviewed. Follow up 4wks, sooner if needed 12/14/2021 - 10w6d - Marlene Santiago DO FIRST OB VISIT HPI: Ely Rice is [...] staying hydrated. Works as quick [employer] in [employer] Having acid reflux. Taking omeprazole. R eflux [...] Control at the time of conception: none. [employer] HX: No history of abnormal pap smear [...] induced as did not want to miss Ting morrison she says. 2nd thought baby might be [...] daily if needed for Nausea/Vomiting. ? ? [id number]-[id number] oil ( Gummy) 400 mcg-35 mg -25 [...] HISTORY History of psychiatric diagnosis: Depres jose aflredo and anxiety. Had depression after 2nd . 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 I did call and tell [facility] neonatal social worker that patient is . I do not [...] to 35 years Sociodemographic characteristics (Maribel n Australian, low socioeconomic level) Personal risk factors (eg, history of lo w weight or small for gestational age, previous adverse outcome, > 10 year interval) Total time preparing to see this patient , ysoy-wc-mtyy time, and coordinating care time on the same calendar date: 63 minutes. ?? Last Filed Vital Signs Vital Sign Reading Time Taken Comments Blood Pressure 126/81 05/11/2022 9:56 AM CDT Pulse 75 05/11/2022 9:56 AM CDT Temperature 36.6 ??C (97.9 ??F) 11/05/2021 10:58 AM CDT Respiratory Rate 16 10/24/2020 12:50 PM CDT Oxygen Saturation 98% 05/11/2022 9:56 AM CDT Inhaled Oxygen Concentration - - Weight 119.3 kg (263 lb 1.6 oz) 05/11/2022 9:56 AM CDT Height 160 cm (5' 3) 11/17/2021 8:11 AM CDT Body Mass Index 46.61 11/17/2021 8:11 AM CDT Plan of Treatment Upcoming Encounters Date Type Specialty Care Team Description 05/18/2022 OB Encounter Marlene Santiago DO [address] [phone] (Wo rk) 05/18/2022 Ancillary Procedure 05/25/2022 Orders Only Lab, [facility] 05/25/2022 OB Encounter Marlene Santiago DO [address] 5 [phone] (Wo rk) 05/25/2022 Ancillary Procedure 06/01/2022 OB Encounter Marlene Santiago DO [address] 5 [phone] (Wo rk) 06/01/2022 Ancillary Procedure 06/08/2022 OB Encounter Marlene Santiago DO [address] 5 [address] (Wo rk) 06/08/2022 Ancillary Procedure 06/14/2022 OB Encounter Marlene Santiago DO [address] 5 [address]50 (Wo rk) 06/15/2022 OB Encounter Marlene Santiago DO [address] 5 [address]056 (Wo rk) 06/15/2022 Ancillary Procedure 06/22/2022 OB Encounter Marlene Santiago DO [address] 5 [address]053 (Wo rk) 06/22/2022 Ancillary Procedure 06/29/2022 OB Encounter Marlene Santiago DO [address] 5 [address] (Wo rk) 06/29/2022 Ancillary Procedure 07/06/2022 OB Encounter Jack Marlene Ann, DO [address] [place], [place] [phone] (Wo rk) 07/06/2022 Ancillary Procedure Health Maintenance [...] exists Procedures Procedure Name Priority Date/Time Associated Diagnosis Comme [facility] OB BIOPHYSICAL Routine 05/11/2022 11:07 care in [facility] for this PROFILE SINGLE WO NST AM CDT second tri mester procedure are in Obesity in the res ults section. ALT (SGPT) STAT 05/11/2022 10:46 Gestational Results for this AM CDT hyperglycemia procedure are in the results section. AST (SGOT) STAT 05/11/2022 10:46 Gestational Results for this AM CDT hyperglycemia procedure are in the results section. CREATININE STAT 05/11/2022 10:46 Gestational Results for this AM CDT hyperglycemia procedure are in the results section. PLATELET COUNT STAT 05/11/2022 10:46 Gestational Results f or this AM CDT hyperglycemia procedure are in the results section. PROTEIN,TIMED URINE Routine 05/10/2022 6:33 Elevated BP withou t Results for this AM CDT diagnosis of procedure are i n hypertension the results section. CREATININE Routine 05/07/2022 9:09 Elevated BP without Resul ts for this AM CDT diagnosis of procedure are i n hypertension the results section. ALT (SGPT) Routine 05/07/2022 9:09 Elevated BP without Resul ts for this AM CDT diagnosis of procedure are i n hypertension the results section. PLATELET COUNT Routine 05/07/2022 9:09 Elevated BP without Res ults for this AM CDT diagnosis of procedure are i n hypertension the results section. PROTEIN/CREAT Routine 05/07/2022 9:00 Elevated BP without Resu lts for this RATIO,URINE AM CDT diagnosis of procedure are i n hypertension the results section. US OB FOLLOW UP ANY Routine 04/20/2022 10:20 care in Results for this TRI SINGLE TA AM CDT second trimester procedure are in Obesity in the res ults section. TREPONEMA PALLIDUM Routine 04/13/2022 9:56 care in Re sults for this AM CDT second trimester procedure a re in the results section. HEMOGLOBIN Routine 04/13/2022 9:56 care in Results for this AM CDT second trimester procedure a re in the results section. GLUCOSE,GESTATIONAL Routine 04/13/2022 9:56 care in R esults for this AM CDT second trimester procedure a re in the results section. US Routine 02/16/2022 2:23 High-risk Resul ts for this ECHOCARDIOGRAM PM CDT in second trimester proced ure are in the results section. US OB DETAIL Routine 02/16/2022 2:23 High-risk Results for this ANATOMY SINGLE PM CDT in second trimester proced ure are in the results section. from Last 3 Months Results US OB BIOPHYSICAL PROFILE SINGLE WO NST (05/11/2022 11:07 AM CDT) Anatomical Region Laterality Modality Ultrasound Specimen (Source) Anatomical Collection Method Collection Time Re ceived Time Location / / Volume Laterality 05/11/2022 12:54 PM CDT Impressions 05/11/2022 12:54 PM CDT Normal biophysical profile score of 8 out of 8. Single deepest pocket amniotic fluid cortes surement of 10.2 cm. Attention at follow-up growth ultrasound suggested. Dictated by Justin Rose MD @ May 11 2 022 12:54PM (Electronically Signed) ?? Narrative 05/11/2022 12:54 PM CDT For Patients: ??As a result of the Cures Act, medical imaging exams and procedure report s are released immediately into your [facility] medical record. ??You may view this report before your referring provider. ??If you have questions, please contact your health care provider. INDICATION: Obesity COMPARISON: 04/20/2022 TECHNIQUE: Real time alex scale imaging of the fetu s was performed as well as color Doppler and spectral Doppler analysis of the umbilical artery. Without non-stress testing. FINDINGS: Sonographic imaging demonstrates a singl e living intrauterine gestation. ??Fetus demonstrates a regular cardiac rate of 123 beats per minute. ??Fetus has a vertex orientation with spine to the mat ernal left. The umbilical artery demonst rates adequate diastolic blood flow. ??The S/D ratio measures 3.1. The amniotic fluid volume may be slightly increased and there is a single deepest pocket measur ement of 10.2 cm. ??The fetus was active and demonstrated normal breathing movements. There was normal flexion and extension of the trunk and extremities. ?? Procedure Note Justin Rose MD - 05/11/2022For matting of this note might be different from the original. For Patients: As a result of the Cures Act, medical imaging exams and procedure reports are released immediately into your electronic medical record. You may view this report before your referring provider. If you have questions, please contact yo health care provider. INDICATION: Obesity COMPARISON: 04/20/2022 TECHNIQUE: Real time alex scale imaging of the fetu s was performed as well as color Doppler and spectral Doppler analysis of the umbilical artery. Without non-stress testing. FINDINGS: Sonographic imaging demonstrates a singl e living intrauterine gestation. Fetus demonstrates a regular cardiac rate of 123 beats per minute. Fetus has a vertex orientation with spine to the maternal left. The umbilical artery demonstrates adequate d iastolic blood flow. The S/D ratio measures 3.1. The amniotic fluid volume may be slightly increased and there is a single deepest pocket measurement of 10.2 cm. The fetus was active and demonstrated normal breat gabriel movements. There was normal flexion and extension of the trunk and extremities. IMPRESSION: Normal biophysical profile score of 8 ou t of 8. Single deepest pocket amniotic fluid cortes surement of 10.2 cm. Attention at follow-up growth ultrasound suggested. Dictated by Justin Rose MD @ May 11 12:54PM (Electronically Signed) Marlene Santiago DO US PLATELET COUNT (05/11/2022 10:46 AM CDT)Only the most recent of2 resultswithin the time period is included. athologist Signature PLATELET COUNT 264 140 - 440 05/11/2022 [facility] thou/cu mm 10:56 AM CDT [facility] MPV 10.8 6.5 - 11.0 05/11/2022 [facility] fL 10:56 AM CDT [facility] Specimen Anatomical Collection Method / Collection Time Recei bebo Time (Source) Location / Volume Laterality Blood BLOOD SPECIMEN / Venipuncture / 05/11/2022 10:46 05/11 Unknown Unknown AM CDT 10:48 AM CDT Marlene Santiago DO HEMATOLOGY Performing Organization Address City/[facility] Code Phon e Number [facility] [address] [place] [address] CREATININE (05/11/2022 10:46 AM CDT)Only the most recent of2 resultswithin the time period is included. athologist Signature CREATININE 0.60 0.57 - 1.11 05/11/2022 [facility] mg/dL 4:00 PM CDT LABORATORY-CENT RAL LABORATORY eGFR >90 >90 05/11/2022 [facility] mL/min/1.73 4:00 PM CDT LABORATORY-CENT m2 RAL LABORATORY Comment: As of 2021, eGFR is calcu lated by the CKD-EPI creatinine equation without race adjustment. eGFR can be inf luenced by muscle mass, exercise, and diet. The reported eGFR is an estimation only and is only applicable if the renal function is stable. Specimen Anatomical Collection Method / Collection Time Recei bebo Time (Source) Location / Volume Laterality Blood BLOOD SPECIMEN / Venipuncture / 05/11/2022 10:46 05/11 Unknown Unknown AM CDT 10:48 AM CDT Marlene Santiago DO CHEMISTRY Performing Organization Address City/State/ZIP Code Phon e Number [facility] [address] [place] [id number] LABORATORY-CENTRAL 2000 LABORATORY ALT (SGPT) (05/11/2022 10:46 AM CDT)Only the most recent of2 resultswithin the time period is included. athologist Signature ALT (SGPT) 10 8 - 45 IU/L 05/11/2022 [facility] 4:02 PM CDT LABORATORY-CENT RAL LABORATORY Specimen Anatomical Collection Method / Collection Time Recei bebo Time (Source) Location / Volume Laterality Blood BLOOD SPECIMEN / Venipuncture / 05/11/2022 10:46 05/11 Unknown Unknown AM CDT 10:48 AM CDT [facility] CHEMISTRY Performing Organization Address [facility]/ZIP Code Phon e Number [facility] [address] [place] [id number] LABORATORY-CENTRAL 1999 LABORATORY AST (SGOT) (05/11/2022 10:46 AM CDT) athologist Signature AST (SGOT) 12 2 - 40 IU/L 05/11/2022 [facility] 4:02 PM CDT LABORATORY-CENT RAL LABORATORY Specimen Anatomical Collection Method / Collection Time Recei bebo Time (Source) Location / Volume Laterality Blood BLOOD SPECIMEN / Venipuncture / 05/11/2022 10:46 05/11 Unknown Unknown AM CDT 10:48 AM CDT Marlene Amanda [facility] CHEMISTRY Performing Organization Address City/[facility]/ZIP [facility] Phon e Number [facility] [address] [place] [id number] LABORATORY-CENTRAL 2000 LABORATORY PROTEIN,TIMED URINE (05/10/2022 6:33 AM CDT) athologist Signature PROTEIN,RAW 12 mg/dL 05/10/2022 [facility] URINE 8:08 PM CDT LABORATORY-CENT RAL LABORATORY TOTAL VOLUME 950 mL 05/10/2022 [facility] 8:08 PM CDT LABORATORY-CENT RAL LABORATORY COLLECTION HRS 24 hr 05/10/2022 [facility] 8:08 PM CDT LABORATORY-CENT RAL LABORATORY PROTEIN,TIMED 114 50 - 150 05/10/2022 [facility] URINE mg/24hr 8:08 PM CDT LABORATORY-CENT RAL LABORATORY Specimen Anatomical Collection Method Collection Time Receive d Time (Source) Location / / Volume Laterality Urine URINE SPECIMEN / Non-Blood / 05/10/2022 6:33 AM 05/10 8:27 Unknown Unknown CDT AM CDT Erlinda Oshea MD URINE Performing Organization Address [facility] Phon e Number [facility] [phone] [place] [address] [place] [address] LABORATORY-CENTRAL 2000 LABORATORY (ABNORMAL) PROTEIN/CREAT RATIO,URINE (05/07/2022 9:00 AM CDT) P athologist Signature PROTEIN 21 (H) <=14 mg/dL 05/07/2022 [facility] QUANT,RAND 6:10 PM CDT LABORATORY-CENT URINE RAL LABORATORY CREAT,RANDOM 226.2 mg/dL 05/07/2022 [facility] URINE 6:10 PM CDT LABORATORY-CENT RAL LABORATORY PROT/CREAT 0.1 <0.2 05/07/2022 [facility] RATIO,UR 6:10 PM CDT LABORATORY-CENT RAL LABORATORY Specimen Anatomical Collection Method Collection Time Receive d Time (Source) Location / / Volume Laterality Urine URINE SPECIMEN / Non-Blood / 05/07/2022 9:00 AM 05/07 9:22 Unknown Unknown CDT AM CDT Erlinda Oshea MD URINE Performing Organization Address City/[facility] Phon e Number [facility] [phone] [place] [address] LABORATORY-CENTRAL 2000 LABORATORY US OB FOLLOW UP ANY TRI SINGLE [...] are released immediately into your [facility] medical record. ??You may view this report [...] provider. If you have questions, please contact [facility] health care provider. INDICATION: Third trimester scan, [...] logist Time Signature TREPONEMA Negative Negative 04/14/2022 [facility] PALLIDUM 11:14 AM CDT LABORATORY-SCOTT TRAL LABORATORY Specimen Anatomical Collection Method / Collection Time Recei bebo Time (Source) Location / Volume Laterality Blood BLOOD SPECIMEN / Venipuncture / 04/13/2022 9:56 2021 9:59 Unknown Unknown AM CDT AM CDT Marlene Santiago DO SEND OUTS Performing Organization Address City/State/ZIP Code Phon e Number [facility] [address] [place] [address] LABORATORY-CENTRAL 2000 LABORATORY (ABNORMAL) HEMOGLOBIN (04/13/2022 9:56 AM CDT) P athologist Signature HEMOGLOBIN 11.8 (L) 12.0 - 04/13/2022 [facility] 16.0 g/dL 10:05 AM CDT [facility] MCV 89 80 - 100 04/13/2022 [facility] fL 10:05 AM CDT [facility] Specimen Anatomical Collection Method / Collection Time Recei bebo Time (Source) Location / Volume Laterality Blood BLOOD SPECIMEN / Venipuncture / 04/13/2022 9:56 2021 9:59 Unknown Unknown AM CDT AM CDT Marlene Santiago DO HEMATOLOGY Performing Organization Address City/State/ZIP Code Phon e Number [facility] [address] [place] [address] GLUCOSE,GESTATIONAL (04/13/2022 9:56 AM CDT) athologist Signature GLUCOSE,GESTAT 131 65 [phone] 140 04/13/2022 [facility] IONAL mg/dL 10:08 AM CDT [facility] Specimen Anatomical Collection Method / Collection Time Recei bebo Time (Source) Location / Volume Laterality Blood BLOOD SPECIMEN / Venipuncture / 04/13/2022 9:56 2021 9:59 Unknown Unknown AM CDT AM CDT Marlene Santiago DO CHEMISTRY Performing Organization Address City/State/ZIP Code Phon e Number [facility] [address] [place] [address] US ECHOCARDIOGRAM (02/16/2022 2:23 PM CDT) Anatomical [...] abnormalities. Services Provided: Procedures Code US ECHOCARDIOGRAM 89902.0 US DOPPLER COLOR FLOW VELOCITY MAP 21244 .0 Procedure Note Ofelia Mata MD - 02/16/2022 Normal Echocardiogram COMMENT The results of the echocardiogram were discussed with the parents. echocardiograms can not rule out some ventricular septa l defects, persistent patent ductus arteriosus, atrial septal defect, some abnormalities of sys temic and pulmonary venous return, coarctation of the aorta, and minor valve abnormalities. Services Provided: ProceduresCode US [id number] US DOPPLER COLOR FLOW VELOCITY [id number]. 0 Marlene Santiago DO US US OB DETAIL ANATOMY SINGLE (02/16/2022 2:23 PM CDT) Anatomical Region Laterality Modality , 2or 3 TRIMESTER Ult rasound Specimen (Source) Anatomical Collection Method Collection Time Re ceived Time Location / / Volume Laterality 02/16/2022 2:18 PM CDT Narrative 02/16/2022 3:15 PM CDT Referred By: MARLENE ??JACK ??DO ? Indications Code 20 weeks gestation [...] as needed. Medical Decision Making: Low Complexity 64300 ?Limited Diagnoses including two mi nor problems, with BMI>40. ?Moderate Data including review of prior ultrasound and review of prior external notes, ordering additional ultrasound/testing ?Low risk of morbidity or mortality to the fetus from amniocentesis which was considered and declined. Services Provided: Procedures Code DETAIL ANATOMY & [facility] ECHO 55207.0 Procedure Note Ofelia Mata MD - 02/16/2022 Referred By: MARLENE SANTIAGO DO IndicationsCode 20 weeks gestation of [id number] Declined genetic screening BMI > 40 GERD, [...] schedule the rosa mmended follow up with [facility], if desired. The patient will discuss with her primary provider a t the next OB visit. CONSULT: Present findings are reassuring. The pat killian was seen by the Perinatologist today. The [...] as needed. Medical Decision Making: Low Complexity 19507 Limited Diagnoses including two minor p roblems, with BMI>40. Moderate Data including review of prior ultrasound and review of prior external notes, ordering additional ultrasound/testing Low risk of morbidity or mortality to t he fetus from amniocentesis which was considered and declined. Services Provided: ProceduresCode DETAIL ANATOMY & [facility] [id number] Marlene Santiago DO US from Last 3 Months Insurance Payer Benefit Plan / Subscriber ID Effective Dates Phone Addre ss Type Group MEDICA [place] MEDICA CHOICE [id number] 2013-Present [address] [place] [address] [employer] [place] [employer] [id number] 2019-Present [address] [address] [place] [address] Ely Rice Personal/Family Self 1990 [address] ([address]) [place] [phone] Advance Directives Latest Code Status on File Code Status Date Activated Date Inactivated Comments Full Code 10/16/2013 10:46 PM 10/17/2013 11:16 PM Full Code 10/16/2013 2:33 PM 10/16/2013 10:46 PM Care Teams Affiliate Marketing Specialist Relationship Specialty Start Date End Date Yaima Doyle PA PCP - General Family Practice 02/04/[address] [place] [address] Marlene Santiago DO Referring Provider Family Practice 01/04/[address] [place] [address] [address]
--- NOTE | 2022-05-11 21:34 | PC.OBNST ---
NST Note NST Note Start: 05/11/22 19:37 Freq: ONCE Status: Discharge Protocol: Document 05/11/22 20:30 EDYTA (Rec: 05/11/22 21:33 EDYTA [id number]) NST Note 4 Para (# of births) 3 EDC 07/06/22 Gestational Age In Weeks & Days 32 Weeks & 0 Days High Risk Factors High Blood Pressure - Gestational,Diabetes - Gestational Diet Controlled Patient Presented with Complaint(s) of Headache,Other If Observation after an injury, describe High blood pressure reading at home Reactive Yes Appropriate for Gestational Age Yes TOLU Anderson, RNC Date 05/11/22 Reactive Yes Appropriate for Gestational Age Yes TOLU Rand, RN Date 05/11/22 OB NST charge Yes Complete NST Note via Write Note Yes The provider's electronic signature indicates the NST is reactive/appropriate for gestational age. *Note to provider: If an addendum is required, open the patient's chart and click on the note under the Nurse/Allied Health tab.
== END 2022-05-11 21:10 | disposition home or self-care (01) ==
LOC: OB OUT 19:09 → OB 19:12
PROVIDERS: Visit Provider Family Medicine
DX: O13.3 Gestational [pregnancy-induced] hypertension without significant proteinuria, third trimester (principal); Z3A.32 32 weeks gestation of pregnancy
CPT/HCPCS: 59025; 99213

== ENCOUNTER 2022-06-14 16:29 | Inpatient (IN) | payer BC, SELFPAY ==
[2022-06-14] VITALS (8 sets, daily range): BP systolic 135–147; BP diastolic 72–75; PULSE 67–78; RESP 16; TEMP 36.6–36.9; O2SAT 98; BMI 46.4
--- NOTE | 2022-06-14 18:05 | P.OBHP_ITS ---
OB - H&P: HPI Labor/Induction History of Present Illness Date Seen: 06/14/22 Chief Complaint: The patient is a 32 year old 4 para 3 at 36 6/7 weeks gestation by 7wk US (unsure LMP), who presents for induction due to gestational htn. Chief complaint: Maternity : 4 Para: 3 Narrative: Ely Rice is a 32 year old female at 36 6/7 wks gestation here for induction due to gestational htn. History of Present Dating criteria: based on 1st trimester US only care: good care complications: other (1. Obesity in , saw anesthesiology, OB and MPP due to BMI>40 in . Had level 2US and echo. growth US at 30wks, EFW 97th%. 2. Covid in early . 3. ANNE SDP 10.2 at 32wk US, weekly BPP's since with normal ANNE's) and gestational hypertension complications comment: Gestational htn diagnosed at 31wks. Labs Blood type: A (+) positive Rubella: immune RPR/VDLR: nonreactive GBS status: positive HBsAG: negative Review of Systems Narrative: chronic headaches throughout since before and same throughout . No change. not worse or different today. 'mild' per pt and that is her baseline she says. No vision changes. no abdominal pain. No bleeding. not feeling ctxs. Little edema legs at time. No recent illness Meds Home Medications and Allergies Home Medications Medication Instructions Recorded Confirmed Type aspirin 81 mg tablet,delayed 81 mg PO QDAY 02/10/22 05/11/22 History release (Adult Low Dose Aspirin) famotidine 20 mg tablet 20 mg PO QDAY 02/10/22 05/11/22 History fluoxetine 40 mg capsule 40 mg PO QAM 02/10/22 05/11/22 History vit no.95-ferrous 1 tab PO DAILY 05/06/22 05/11/22 History fumarate 28 mg-folic acid 800 mcg tablet ( Multivitamins) Allergies Allergy/AdvReac Type Severity Reaction Status Date / Time No Known Allergies Allergy Verified 05/11/22 21:16 OB - H&P: Exam Physical Exam: Vital signs: Pulse BP Pulse Ox 67 137/75 98 06/14/22 17:12 06/14/22 17:12 06/14/22 17:09 Constitutional: Constitutional: no acute distress Routine HEENT Exam: Head: Present normal inspection Eye: Present normal appearance ENT: Present mucous membranes moist Routine Respiratory Exam: Respiratory: Present CTA bilaterally; Absent crackles, rales, rhonchi or wheezes Routine Cardiovascular Exam: Cardiovascular: RRR Routine Abdominal Exam: Comments: gravid. Nttp Detailed Labor and Delivery Exam: Dilation (cm): 1 Effacement (%): 40 Cervix position: posterior Consistency: medium Comments: FHT 150's, moderate variability, +accels. no decels. not feeling contractions. Monitor with q1-4min ctxs Routine Extremities Exam: Comments: trace edema OB - Problem Based A/P Additional Plan (1) Gestational hypertension: Status: Acute Plan Induction with Cook catheter placed without difficulty. Low dose pitocin protoc ol overnight. Start abx for GBS when start pitocin. Reviewed induction and variability of courses with pt in detail earlier today. All ?'s answered and they were in agreement with plan. Will get preeclamptic labs on admit tonight and repeat if any change in status. Delivery/Labor/Induction Plan Plan: induction Induction method: Intracervical balloon catheter
[2022-06-14 18:21] LABS: SARS PCR* Negative SARS-CoV-2 (Negative)
[2022-06-14 18:31] LABS: Total Protein Urine 35 mg/dL
[2022-06-14 18:33] LABS: Creatinine Urine 143.5 mg/dL
[2022-06-14 18:55] LABS: Creatinine* 0.4 mg/dL (0.5-1.5); Est. Creatinine Clearance* 168.57; Estimated Glomerular Filt Rate 136 ml/min
[2022-06-14 18:56] LABS: Alanine Aminotransferase* 16 U/L (4-35); Aspartate Amino Transferase* 19 U/L (12-35)
[2022-06-14 19:13] LABS: Basophils Percent Auto 0.3 % (0.0-3.0); Eosinophils Percent Auto 3.2 % (0.0-7.0); Hematocrit 32.7 % (33.0-51.0); Hemoglobin* 10.7 gm/dL (12.0-16.0); Immature Granulocytes Pct Auto 0.3 %; Lymphocytes Percent Auto 16.8 % (20-44); Mean Corpuscular HGB Conc 33 gm/dL (32-36); Mean Corpuscular Hemoglobin 28 pg (26-34); Mean Corpuscular Volume 87 fL (80-100); Monocytes Percent Auto 7.3 % (0.0-11.0); Neutrophils Percent Auto 72.1 % (42.0-72.0); Platelet Count* 288 K/uL (140-440); RDW Coefficient of Variation % 13.5 % (11.5-15.5); Red Blood Count 3.78 m/uL (4.00-5.20); White Blood Count* 11.82 K/uL (4.50-11.00)
[2022-06-14 19:16] LABS: Slide Review Reflex No
[2022-06-14] MEDS: MORPHINE 10 MG/ML inj IM (22:10)
[2022-06-14] MEDS: hydrOXYzine pamoate 25 MG CAPSULE 100 MG PO (22:10)
[2022-06-15] VITALS (25 sets, daily range): BP systolic 128–161; BP diastolic 63–79; PULSE 64–80; RESP 16; TEMP 36.5–37.1
[2022-06-15] MEDS: LACTATED RINGERS 1000 ML 1,000 ML 125 ML IV ×2 (00:35→09:08)
[2022-06-15] MEDS: OXYTOCIN 30 unit/500 ML in NS 30 UNIT/500 ML BAG IVPB (00:35)
[2022-06-15] MEDS: AMPICILLIN 2 GM in 0.9 % SODIUM CHLORIDE Mini-bag 100 ML IVPB (00:36)
[2022-06-15] MEDS: AMPICILLIN 1 GM in 0.9 % SODIUM CHLORIDE Mini-bag 100 ML IVPB ×5 (04:57→20:08)
--- NOTE | 2022-06-15 06:36 | PM.OBPNL ---
Subjective Date Seen: 06/15/22 Narrative: 32yo at 37wks admitted for induction due to gestational htn. Cook catheter placed last night and removed this morning after 12 hours. Pitocin low dose protocol started 0030 along with abx for GBS prophylaxis. pt reports feeling mild ctxs. Objective Vital Signs: Last Vital Signs Temp 97.7 F 06/15/22 04:47 Pulse 66 06/15/22 04:47 BP 140/68 H 06/15/22 04:47 Pulse Ox 98 06/14/22 17:09 Comments: bp's 130-140's/60-70's Pelvic Exam Dilation (cm): 4 Effacement (%): 50 Station: -3 Comments: head ballotable Contractions Contraction Frequency: q1-4min Contraction intensity: Mild Assessment Assessment: induction ongoing Station: -3 Status: Category l Heart Rate Baseline: 120 Drilling Machine Operator Variability: Moderate (6-25) Monitor Accelerations: Present Monitor Decelerations: None Plan Plan: continue with pitocin, increasing per protocol. On abx for GBS prophylaxis. Initial preeclamptic labs on admit negative. Continue monitor.
[2022-06-15] MEDS: ACETAMINOPHEN 500 MG TABLET 1000 MG PO (16:47)
[2022-06-15 17:18] LABS: Hematocrit 32.5 % (33.0-51.0); Hemoglobin* 10.7 gm/dL (12.0-16.0); Mean Corpuscular HGB Conc 33 gm/dL (32-36); Mean Corpuscular Hemoglobin 29 pg (26-34); Mean Corpuscular Volume 87 fL (80-100); Platelet Count* 282 K/uL (140-440); Red Blood Count 3.74 m/uL (4.00-5.20); White Blood Count* 11.41 K/uL (4.50-11.00)
[2022-06-15 17:28] LABS: Slide Review Reflex No
[2022-06-15 17:32] LABS: Alanine Aminotransferase* 15 U/L (4-35); Aspartate Amino Transferase* 21 U/L (12-35); Creatinine* 0.4 mg/dL (0.5-1.5); Est. Creatinine Clearance* 168.57; Estimated Glomerular Filt Rate 136 ml/min
[2022-06-15 17:33] LABS: Blood Urea Nitrogen* 7 mg/dL (5-24)
[2022-06-15] MEDS: fentaNYL 100 MCG/2 ML inj IVP (18:14)
--- NOTE | 2022-06-15 18:19 | PM.OBPNL ---
Subjective Time Seen by Provider: 18:10 Date Seen: 06/15/22 Narrative: 32yo at 37wks gestation being induced for gestational htn. She has had Cook catheter overnight with low dose pitocin. Catheter removed this morning and pitocin increased per protocol. Currently on pitocin and pt reports contractions much stronger lately. She rates as 8/10 and is breathing through them. She had headache this afternoon and took tylenol and reports resolved. She has had daily headaches prior to and throughout that have not been changed. She did have BP 161/77 at 1611 today. No other bps >/= 160/110. Repeat preeclamptic labs remain negative. Objective Exam: Pt resting comfortably between ctxs. breathing through ctxs. Vital Signs: Last Vital Signs Temp 98.7 F 06/15/22 16:10 Pulse 71 06/15/22 17:29 Resp 16 06/15/22 16:10 BP 146/71 H 06/15/22 17:29 Pulse Ox 98 06/14/22 17:09 Comments: bedside US confirms vertex presentation Pelvic Exam Dilation (cm): 4.5 Effacement (%): 50 Station: -3 Comments: head ballotable Contractions Contraction Frequency: q1-3min Contraction intensity: Mild Assessment Assessment: induction ongoing Station: -3 Status: Category l Heart Rate Baseline: 135 Population Geneticist Variability: Moderate (6-25) Monitor Accelerations: Present Tracing Comments: Had one decel at 1402 sitting on birthing ball. Recovered and no significant since. Plan Plan: 32yo at 37wks here for induction due to gestational htn. 1. Pt not in labor yet s/p Cook overnight and pitocin all day. Cervix with minimal change all day. Not rupturable as head ballotable. Pt now starting to breath through and rating higher so will continue pitocin for couple hours to see if starting transition into labor. If not transitioning, discussed will likely stop pitocin for pitocin break and start vaginal cytotec after 1-2 hours depending on ctx pattern. Reviewed with pt, and nursing. 2. Preeclamptic labs negative tonight. Headache resolved. Continue monitor bp 3. On IV abx and pitocin. pt drinking lots of water all day per nursing. I/O's documentation not complete yet but per nursing sounds to be about 2L up. She is voiding well. TKO IV all day as watching fluid status. RN discussed decrease oral intake as well due to current fluid status. No current respiratory sxs. Continue monitor closely
[2022-06-15] MEDS: CALCIUM CARBONATE 500 MG CHEW PO (20:36)
[2022-06-15] MEDS: miSOPROStoL 25 MCG/0.25 TABLET VAGINAL (22:56)
[2022-06-16] VITALS (87 sets, daily range): BP systolic 89–183; BP diastolic 46–86; PULSE 63–93; RESP 16–18; TEMP 36.5–36.9; O2SAT 91–100
[2022-06-16] MEDS: AMPICILLIN 1 GM in 0.9 % SODIUM CHLORIDE Mini-bag 100 ML IVPB ×6 (01:57→22:02)
[2022-06-16] MEDS: miSOPROStoL 25 MCG/0.25 TABLET VAGINAL (01:57)
[2022-06-16] MEDS: miSOPROStoL 25 MCG/0.25 TABLET 50 MCG VAGINAL (05:00)
--- NOTE | 2022-06-16 07:03 | PM.OBPNL ---
Subjective Time Seen by Provider: 07:11 Date Seen: 06/16/22 Narrative: 32yo at 37wks gestation being induced for gestational htn. She had Cook catheter placed overnight 06/14/22 with low dose pitocin. Catheter removed 06/15/22 morning and pitocin increased per protocol throughout day to 23 with minimal cervical change by last night. Pitocin stopped and cytotec vaginally started overnight. She has received 25mcg x 2 and most recently at 5am received 50mcg vaginally. she is having mild ctxs. Has slept overnight. Had BP yesterday around 1611 of 161/77 with recheck at 1615 of 158/78. Had headache then which resolved with tylenol and repeat PIH labs then negative. She has had daily headaches prior to and throughout that have not been changed. She had additional elevated bp at 0414am of 183/75. This was not repeated until 0504 and it was 154/75. No other bps >/= 160/110. No current headaches. Repeat preeclamptic labs now pending. Objective Exam: resting comfortably Vital Signs: Last Vital Signs Temp 98.3 F 06/16/22 02:05 Pulse 81 06/16/22 06:04 Resp 16 06/16/22 02:05 BP 133/60 06/16/22 06:04 Pulse Ox 98 06/14/22 17:09 Pelvic Exam Dilation (cm): 4.5 Effacement (%): 70 Station: -2 Comments: per nursing at 5am Contractions Contraction Frequency: q1-4 Contraction pattern: Irregular Contraction intensity: Mild Assessment Station: -2 Status: Category l Heart Rate Baseline: 130 Senior Living Variability: Moderate (6-25) Monitor Accelerations: Present Monitor Decelerations: None Plan Plan: Plan recheck cervix and start pitocin when able around 9am Repeat labs this morning Discussed two elevated bp's listed aboe with OB conveyor system dispatcher Dr Sen. The 1st on recheck was < 160/110, the 2nd did not technically get rechecked until 45min later and was then < 160/110. Dr Sen recommended continued monitoring for now and not starting magnesium at this point. Discussed all the above with pt and spouse. all ?'s abswered.
[2022-06-16 08:05] LABS: Alanine Aminotransferase* 15 U/L (4-35); Aspartate Amino Transferase* 19 U/L (12-35); Creatinine* 0.5 mg/dL (0.5-1.5); Est. Creatinine Clearance* 134.86; Estimated Glomerular Filt Rate 129 ml/min
[2022-06-16 09:08] LABS: Total Protein Urine 20 mg/dL
[2022-06-16 09:09] LABS: Creatinine Urine 95.6 mg/dL
[2022-06-16] MEDS: FLUOXETINE HCL 20 MG CAPSULE 40 MG PO (09:39)
[2022-06-16] MEDS: OXYTOCIN 30 unit/500 ML in NS 30 UNIT/500 ML BAG IVPB (09:39)
[2022-06-16] MEDS: fentaNYL 100 MCG/2 ML inj IVP ×2 (12:29→17:26)
[2022-06-16 16:32] LABS: Platelet Count* 250 K/uL (140-440)
[2022-06-16] MEDS: LABETALOL HCL 5 MG/ML inj IVP ×2 (17:10→17:40)
[2022-06-16 17:37] LABS: Hematocrit 33.7 % (33.0-51.0); Hemoglobin* 10.9 gm/dL (12.0-16.0); Mean Corpuscular HGB Conc 32 gm/dL (32-36); Mean Corpuscular Hemoglobin 29 pg (26-34); Mean Corpuscular Volume 89 fL (80-100); Platelet Count* 265 K/uL (140-440); Red Blood Count 3.81 m/uL (4.00-5.20); White Blood Count* 11.76 K/uL (4.50-11.00)
[2022-06-16 17:52] LABS: Slide Review Reflex No
[2022-06-16 17:59] LABS: Alanine Aminotransferase* 15 U/L (4-35); Aspartate Amino Transferase* 18 U/L (12-35); Creatinine* 0.6 mg/dL (0.5-1.5); Est. Creatinine Clearance* 112.38; Estimated Glomerular Filt Rate 123 ml/min
--- NOTE | 2022-06-16 18:28 | PM.OBPNL ---
Subjective Time Seen by Provider: 18:15 Date Seen: 06/16/22 Narrative: 32yo at 37wks gestation being induced for gestational htn. She had Cook catheter placed overnight 06/14/22 with low dose pitocin. Catheter removed 06/15/22 morning and pitocin increased per protocol throughout day to 23 with minimal cervical change by last night. Pitocin stopped and cytotec vaginally done overnight x 3 doses. Pitocin started mid morning and titrated up throughout the day. Around 1630 was noted to have bp 166/77 with repeat 1645 160/70. Per nursing no headaches, vision changes or abdominal pain. Pt started on labetolol prn (had 1 dose) and magnesium infusion started. Repeat labs negative. I discussed with Dr Sen OB distribution transformer assembler who was in agreement with starting severe preeclampsia protocol as ordered. pt now reports contractions strongest they have been. Wants epidural. Objective Vital Signs: Last Vital Signs Temp 98.3 F 06/16/22 17:25 Pulse 74 06/16/22 18:16 Resp 18 06/16/22 17:25 BP 136/67 06/16/22 18:16 Pulse Ox 98 06/14/22 17:09 Pelvic Exam Dilation (cm): 7.0 Effacement (%): 100 Station: -3 Comments: Head asynclitic Contractions Monitor mode: External Contraction Frequency: q2-3 Contraction pattern: Regular Contraction intensity: Moderate Assessment Assessment: active labor Station: -2 Status: Category l Heart Rate Baseline: 140 Rhic Systems Safety Engineer Variability: Moderate (6-25) Monitor Accelerations: Present Monitor Decelerations: None Plan Plan: 1. Pt appears to now be in active labor and as I am documenting this note pt reported SROM with clear fluid. She has already received adequate abx for GBS 2. Severe preeclampsia by BP criteria: labs negative, plan repeat q6hrs. On magnesium. BP's improved after labetolol. 3. Plan reviewed with Dr Sen. Addendum: After SROM then had prolonged decel at 1848. Code white called. Dr Sen an OR team here. Pt placed on hands and knees with recovery of FHT. See Dr Sen's consult for details. Fetus tolerated last few contractions and will plan to monitor closely for now with Dr Sen and OR team on standby. Cervix rechecked after SROM and 5cm.
[2022-06-16] MEDS: LACTATED RINGERS 1000 ML 1,000 ML 61 ML IV (18:41)
[2022-06-16] MEDS: PHENYLEPHRINE 100 MCG/ML SYRINGE IVP ×8 (19:23→20:16)
[2022-06-16] MEDS: LIDOCAINE 2% (PF) 5 ML VIAL EPIDURAL (19:25)
[2022-06-16] MEDS: ROPIVACAINE 0.2% 100 ml 100 ML 12 MG EPIDURAL (19:25)
[2022-06-16] MEDS: ePHEDrine sulfate 5 MG/ML inj 10 MG IVP (19:38)
--- NOTE | 2022-06-16 20:00 | PM.ANBPRC ---
[facility] Medical History (Updated 06/14/22 @ 18:28 by Maria Elena Santiago DO) Anxiety Depression ELMER (obstructive sleep apnea) Surgical History (Updated 06/14/22 @ 18:20 by Maria Elena Santiago DO) No significant past surgical history Social History (Updated 06/14/22 @ 18:23 by Maria Elena Santiago DO) Narrative: . Lives with and children. CPS prev involved prev but not recently. children were in foster care related to concerns about Yogi disciplining youngest son. Yogi says was exaggerated. after 6 months came back to live with them. We notified CPS pt was . There have not been any concerns this . Smoking Status: Former smoker Meds Home Medications and Allergies Home Medications Medication Instructions Recorded Confirmed Type aspirin 81 mg tablet,delayed 81 mg PO QDAY 02/10/22 06/16/22 History release (Adult Low Dose Aspirin) famotidine 20 mg tablet 20 mg PO QDAY 02/10/22 06/16/22 History fluoxetine 40 mg capsule 40 mg PO QAM 02/10/22 06/16/22 History vit no.95-ferrous 1 tab PO DAILY 05/06/22 06/16/22 History fumarate 28 mg-folic acid 800 mcg tablet ( Multivitamins) Allergies Allergy/AdvReac Type Severity Reaction Status Date / Time No Known Allergies Allergy Verified 05/11/22 21:16 Results Labs Labs: Laboratory Results - last 24 hr 06/16/22 06/16/22 06/16/22 07:25 07:25 07:25 WBC Cancelled Corrected WBC Cancelled RBC Cancelled Hgb Cancelled Hct Cancelled MCV Cancelled MCH Cancelled MCHC Cancelled RDW Coeff of Butch Cancelled Plt Count Cancelled 250 Neut % (Auto) Cancelled Lymph % (Auto) Cancelled Tate % (Auto) Cancelled Eos % (Auto) Cancelled Baso % (Auto) Cancelled Neut # (Auto) Cancelled Lymph # (Auto) Cancelled Tate # (Auto) Cancelled Eos # (Auto) Cancelled Baso # (Auto) Cancelled Abs Immat Gran (auto) Cancelled Imm/Tot Granulo (auto) Cancelled Creatinine 0.5 Estimated Creat Clear 134.86 Estimated GFR 129 AST 19 ALT 15 Urine Creatinine Protein/Creatinin Ratio Urine Total Protein 06/16/22 06/16/2222 08:30 17:31 17:31 WBC 11.76 H Corrected WBC RBC 3.81 L Hgb 10.9 L Hct 33.7 MCV 89 MCH 29 MCHC 32 RDW Coeff of Butch Plt Count 265 Neut % (Auto) Lymph % (Auto) Tate % (Auto) Eos % (Auto) Baso % (Auto) Neut # (Auto) Lymph # (Auto) Tate # (Auto) Eos # (Auto) Baso # (Auto) Abs Immat Gran (auto) Imm/Tot Granulo (auto) Creatinine 0.6 Estimated Creat Clear 112.38 Estimated GFR 123 AST 18 ALT 15 Urine Creatinine 95.6 Protein/Creatinin Ratio 0.20 H Urine Total Protein 20 Vital Signs Vital Signs: Last Vital Signs Temp 98.3 F 06/16/22 17:25 Pulse 81 06/16/22 19:58 Resp 18 06/16/22 17:25 BP 116/57 L 06/16/22 19:58 Pulse Ox 100 06/16/22 19:28 Weight: 124.239 kg Height: 160.02 cm Anesthesia Procedures Epidural Insertion Patient Location: OB Start Time: 19:00 Stop Time: 20:00 Start Date: 06/16/22 Stop Date: 06/16/22 Reason for Block: procedure for pain Patient Position: sitting Performed By: Melany Flores Preanesthetic Checklist: IV checked, risks and benefits discussed, monitors and equipment checked, pre-op evaluation, timeout performed and anesthesia consent Prep: chlorhexidine gluconate Monitoring: blood pressure monitoring, continuous pulse oximetry and heart rate Approach: midline Vertebral Space: lumbar (1-5) Epidural Technique: GREGORIO saline Needle Type: Tuohy needle Injection Technique: continuous catheter (continuous catheter) Needle gauge: 17 Needle Length (cm): 10 cm Needle Insertion Depth (cm): 9 Catheter Gauge: 19 Catheter Type: multi-orifice Catheter at skin depth (cm): 15 Test Dose Result: negative and lidocaine 1.5% with epinephrine 1 to 200,000
--- NOTE | 2022-06-16 21:15 | PM.OBPNL ---
Subjective Time Seen by Provider: 21:00 Date Seen: 06/16/22 Narrative: 32yo at 37 1/7 wks gestation here being induced originally for gestational htn and now meeting criteria for severe preeclampsia d/t BP's. Pt comfortable with epidural. not feeling ctxs or pressure. has had lower bp's since epidural and getting phenylephrine for low bp's. Pitocin was stopped approx 2 hours ago with sandi garcia and contractions significantly decreased since then. Objective Vital Signs: Last Vital Signs Temp 98.3 F 06/16/22 21:11 Pulse 81 06/16/22 21:11 Resp 16 06/16/22 21:11 BP 115/56 L 06/16/22 21:11 Pulse Ox 100 06/16/22 19:28 Pelvic Exam Dilation (cm): 5.0 Effacement (%): 80 Station: -2 Comments: Cervix prior to SROM when had bulging bag was felt to be 7/100%/-3. After SROM with rechecks cervix more 5cm. Contractions Monitor mode: External Contraction pattern: Regular Contraction intensity: Moderate Assessment Station: -2 Amniotic Membrane Status: SROM Status: Category l Heart Rate Baseline: 130 Group Home Variability: Moderate (6-25) Monitor Accelerations: Present Plan Plan: 1. plan restart pitocin, Dr Sen updated. 2. Reviewed sandi garcia course and events again with pt and and current situation and plan. They did not have any ?'s.
[2022-06-16] MEDS: ACETAMINOPHEN 500 MG TABLET 1000 MG PO (22:11)
[2022-06-16 23:21] LABS: Hematocrit 30.8 % (33.0-51.0); Hemoglobin* 10.2 gm/dL (12.0-16.0); Mean Corpuscular HGB Conc 33 gm/dL (32-36); Mean Corpuscular Hemoglobin 29 pg (26-34); Mean Corpuscular Volume 87 fL (80-100); Platelet Count* 257 K/uL (140-440); Red Blood Count 3.54 m/uL (4.00-5.20)
[2022-06-16 23:33] LABS: Slide Review Reflex No
[2022-06-16 23:57] LABS: Alanine Aminotransferase* 15 U/L (4-35); Aspartate Amino Transferase* 17 U/L (12-35); Blood Urea Nitrogen* 9 mg/dL (5-24); Creatinine* 0.5 mg/dL (0.5-1.5); Est. Creatinine Clearance* 134.86; Estimated Glomerular Filt Rate 129 ml/min
[2022-06-17] VITALS (22 sets, daily range): BP systolic 100–166; BP diastolic 61–89; PULSE 69–88; RESP 16–18; TEMP 36.6–36.9; O2SAT 95–96
[2022-06-17] MEDS: TRANEXAMIC ACID 100 MG/ML INJ 1000 MG IV (01:50)
[2022-06-17] MEDS: miSOPROStoL 800 MCG/4 TABLET PR (01:57)
--- NOTE | 2022-06-17 02:17 | PM.OBPRCVD ---
Procedure Procedure Done: [facility] Procedure Details: The patient is a 32 year-old admitted on 06/14/22evening at 36 Weeks, 6 Days gestation for induction due to gestational htn.? Cervical exam on admission was 1.5 cm/50 % effaced/-3 station with membranes intact in vertex presentation.? pt was not feeling any contractions.? heart rate was reactive.? Induction had prolonged course as follows:Cook catheter placed evening 06/14/22 with low dose pitocin protocol overnight and cervix 4cm/50%/-3 in morning. Pitocin titrated up all day long without significant cervical change. Pitocin break started evening 06/15/22 and cytotec given vaginally x 3 doses overnight. Pitocin restarted on 06/17/22 morning. Membranes unable to be ruptured. Continued pitocin throughout day. SROM with clear fluid at 1837 on 06/17/22 and then shortly after had code white called due to prolonged decel. Pitocin stopped and FHT's eventually recovered on hands and knees. Dr Sen OB surgeon was present and with fetus recovering recommended continue for vaginal delivery. Pt monitored and FHT reassuring for 2 hours but with no cervical change so Pitocin was restarted and fetus tolerated well. ? Labor Analgesia:? Fentanyl until epidural placed ? Pitocin:? Yes ? Labor onset:? 1837 ? Complete:? 0136 ? Pushing:? 0140 ? heart tones during second stage were deep variables with contractions/pushing and recovered between. ? At 0149 a viable female delivered in vertex presentation over intact perineum via spontaneous vaginal delivery.? was placed on maternal abdomen.? Cord was clamped and cut after a 60 second delay.? Nose and Mouth were bulb suctioned.? Infant weight 7#4oz.? 7 at 1 minute and 8 at 5 minutes.? Shoulder dystocia: no.? Nuchal cord: yes, delivered through. ? Placenta delivered spontaneously and complete at 0153 with a 3 vessel cord. ? Mother and infant were stable after delivery. ? Lacerations:? superficial periurethral abrasions, not repaired as hemostatic . ? Blood loss: 249 mL. Blood loss measurement type: QBL ? Sponge and needles counts are correct. Events: Gestational Hypertension, Polyhydramnios, Covid Infection in and Other (1. Obesity in , saw anesthesiology, OB and MPP due to BMI>40 in . Had level 2US and echo. growth US at 30wks, EFW 97th%. 2. Covid in early . 3. ANNE SDP 10.2 at 32wk US, weekly BPP's since with normal ANNE's) and gestational hypertension) Intrapartal Events: Labor Induction, Distress and Other (prolonged decel resulting in code white being called shortly after SROM. FHT recovered on hands and knees. OB surgeon evaluated and recommended continue to pursue vaginal devlery with close monitoring) Induction method: other (Induction with Cook catheter (06/14/22)and low dose pitocin protocol overnight first night, then pitocen titrated upwards during day all day with minimal change (06/15/22), pitocin break overnight and vagnial cytotec given overnight 2nd night and pitocin restarted 06/16/22. ) Delivery monitor: external FHT and internal FHT Route of delivery: Episiotomy description: None Laceration description: Superficial (periurethral abrasions bilaterally, hemostatic) Estimated blood loss (mL): 249 Anesthesia type: Epidural Infant Infant Gender: Female presentation: vertex Placental Delivery Description: Spontaneous Cord Description: 3 Vessels and Nuchal Cord (x1 delivered through)
[2022-06-17] MEDS: IBUPROFEN 600 MG TABLET PO ×2 (02:27→11:12)
[2022-06-17 05:44] LABS: Hematocrit 32.4 % (33.0-51.0); Hemoglobin* 10.7 gm/dL (12.0-16.0); Mean Corpuscular HGB Conc 33 gm/dL (32-36); Mean Corpuscular Hemoglobin 29 pg (26-34); Mean Corpuscular Volume 88 fL (80-100); Platelet Count* 268 K/uL (140-440); White Blood Count* 16.49 K/uL (4.50-11.00)
[2022-06-17 05:58] LABS: Slide Review Reflex No
[2022-06-17 06:04] LABS: Alanine Aminotransferase* 18 U/L (4-35); Aspartate Amino Transferase* 21 U/L (12-35); Creatinine* 0.5 mg/dL (0.5-1.5); Est. Creatinine Clearance* 134.86; Estimated Glomerular Filt Rate 129 ml/min
[2022-06-17 06:12] LABS: Magnesium* 4.8 mg/dL (1.5-2.6)
[2022-06-17 06:56] LABS: Fibrinogen* 545 mg/dL (200-450)
[2022-06-17] MEDS: ACETAMINOPHEN 500 MG TABLET 1000 MG PO ×2 (07:25→14:19)
[2022-06-17] MEDS: LACTATED RINGERS 1000 ML 1,000 ML 75 ML IV ×2 (08:41→20:47)
[2022-06-17] MEDS: DOCUSATE SODIUM 100 MG CAPSULE PO ×2 (08:51→22:14)
[2022-06-17] MEDS: FLUOXETINE HCL 20 MG CAPSULE 40 MG PO (08:53)
[2022-06-17] MEDS: LANOLIN CREAM 1 APPLIC TOPICAL (11:12)
[2022-06-17 12:11] LABS: Hematocrit 29.6 % (33.0-51.0); Hemoglobin* 9.8 gm/dL (12.0-16.0); Mean Corpuscular HGB Conc 33 gm/dL (32-36); Mean Corpuscular Hemoglobin 29 pg (26-34); Mean Corpuscular Volume 87 fL (80-100); Platelet Count* 268 K/uL (140-440); Red Blood Count 3.41 m/uL (4.00-5.20); White Blood Count* 13.92 K/uL (4.50-11.00)
[2022-06-17 12:13] LABS: Slide Review Reflex No
[2022-06-17 12:20] LABS: Aspartate Amino Transferase* 23 U/L (12-35); Creatinine* 0.4 mg/dL (0.5-1.5); Est. Creatinine Clearance* 168.57; Estimated Glomerular Filt Rate 136 ml/min
[2022-06-17 12:21] LABS: Alanine Aminotransferase* 16 U/L (4-35)
[2022-06-17 22:15] LABS: Magnesium* 4.6 mg/dL (1.5-2.6)
[2022-06-18 04:03] VITALS: BP 144/88; PULSE 73; RESP 16; TEMP 36.7; O2SAT 97
[2022-06-18 07:29] LABS: Hemoglobin* 10.2 gm/dL (12.0-16.0)
[2022-06-18 09:04] VITALS: BP 149/81; PULSE 95; RESP 18; TEMP 36.6; O2SAT 96
[2022-06-18] MEDS: ACETAMINOPHEN 500 MG TABLET 1000 MG PO (09:09)
[2022-06-18] MEDS: FLUOXETINE HCL 20 MG CAPSULE 40 MG PO (09:09)
[2022-06-18] MEDS: DOCUSATE SODIUM 100 MG CAPSULE PO ×2 (09:10→21:07)
[2022-06-18] MEDS: LABETALOL HCL 100 MG TABLET PO ×2 (09:22→21:06)
--- NOTE | 2022-06-18 11:21 | PM.OBPNVD1 ---
OB - PN:Subj Subjective Time Seen by Provider: 08:50 Date Seen: 06/18/22 Interval history: 32yo , now P4 was induced for gestational htn at 37wks--developed severe preeclampsia d/t BP's criteria during induction. She had long induction but did delivered vaginally. Pt is seen today in routine rounds. Magnesium stopped early this morning at 24 hours . BP's yesterday were in 130's/70's but overnight last night and this morning 140's/80's and one 150 range. Pt denies headache currently. She has been significantly fluid up overall since start of her induction based on I/O's, weight and edema. UOP has been ok but taking in lots of fluid. She was given fluid restriction to help wit hfluid status. With magnesium stopped, no further IVF. She has not had any sob. Per nursing, pt does not seem to be diuresing yet. Her weight today actually increased--originally documented as going from 120kg up to 128kg based on 4am weight. She was just reweighed at 9am was confirmed 122kg so the 128kg thought to be an error. Lochia mild. pt without concerns is eager for them to go home today and frustrated she is not being discharged today. pt without concerns. she is ambulating, eating, voiding, stooling without problems. Patient comments OB post-: no complaints infant status: OB - PN: Obj Exam Physical Exam: Vital signs: Temp Pulse Resp BP Pulse Ox O2 Del Method 98.0 F 73 16 149/81 H 97 06/18/22 04:03 06/18/22 04:03 06/18/22 04:03 06/18/22 09:04 06/18/22 04:03 06/18/22 04:03 Constitutional: Constitutional: no acute distress Routine HEENT Exam: Head: Present normal inspection Routine Respiratory Exam: Respiratory: Present CTA bilaterally; Absent crackles Routine Cardiovascular Exam: Cardiovascular: Present RRR Routine Abdominal Exam: Fundus: Present firm Routine Extremities Exam: Extremities: Present pedal edema (2+ nonpitting) OB - PN: Obj Data Labs Labs: Laboratory Results - last 24 hr 06/17/22 06/17/22 06/17/22 11:58 11:58 21:50 WBC 13.92 H RBC 3.41 L Hgb 9.8 L Hct 29.6 L MCV 87 MCH 29 MCHC 33 Plt Count 268 Creatinine 0.4 L Estimated Creat Clear 168.57 Estimated GFR 136 Magnesium 4.6 H* AST 23 ALT 16 06/18/22 07:25 WBC RBC Hgb 10.2 L Hct MCV MCH MCHC Plt Count Creatinine Estimated Creat Clear Estimated GFR Magnesium AST ALT OB - PN: A/P Vaginal Delivery Assessment and Plan (1) Gestational hypertension: Status: Acute (2) Severe preeclampsia: Status: Acute Assessment and Plan: 1. Complete magnesium for 24hours overnight. Preeclamptic labs negative x 2 . 2. BP's increased today, labetolol 100mg bid added 3. T/c adding lasix 20mg daily x 5 days to help with diuresis and bp 4. Discussed possibly home tomorrow depending on bloop pressures, reviewed could be Tuesday as well depending on BP's/how pt is doing. All ?'s answered. (3) (normal spontaneous vaginal delivery): Status: Acute
[2022-06-18 12:04] VITALS: BP 130/82; PULSE 96; TEMP 36.7; O2SAT 95
[2022-06-18] MEDS: IBUPROFEN 600 MG TABLET PO (12:15)
[2022-06-18 15:09] VITALS: BP 138/81; PULSE 74; TEMP 36.9
[2022-06-18] MEDS: FUROSEMIDE 20 MG TABLET PO (17:08)
[2022-06-18 20:58] VITALS: BP 143/84; PULSE 76; RESP 16; TEMP 36.9; O2SAT 97
[2022-06-19] VITALS (7 sets, daily range): BP systolic 121–150; BP diastolic 79–87; PULSE 75–93; RESP 15–16; TEMP 36.5–36.9; O2SAT 95–98
--- NOTE | 2022-06-19 06:42 | P.DS_ITS ---
DS: Providers Provider Time Seen by Provider: 06:22 Date Seen: 06/19/22 Date of admission: 06/14/22 16:29 Primary care physician: Not a Local Provider Admitting Clinician: Maria Elena Santiago DO Attending Physician on discharge: Maria Elena Santiago DO Date of Discharge: 06/19/22 DS: Diagnosis Discharge Diagnosis (1) (normal spontaneous vaginal delivery): Status: Acute (2) Severe preeclampsia: Status: Acute (3) Anxiety: Status: Acute (4) Gestational hypertension: Status: Acute (5) Obesity: Status: Acute Exam Narrative: Exam Narrative: HEENT: Eyes: no lid swelling or redness Ears: Normal external ears Nose: No drainage Oropharynx: Moist mucous membranes Heart RRR murmur (new) Lungs: clear. Abdomen: post changes with pos bowel sounds Extremities: 2+ pitting edema in feet. None pitting edema in ankles and below knee Skin: pink and warm Const: Vital Signs, click to edit/add: Vital Signs - 24 hr 06/18/22 09:04 06/18/22 12:04 06/18/22 15:09 Temperature 97.8 F 98.0 F 98.5 F Pulse Rate [Pulse Oximeter] 95 96 74 Respiratory Rate 18 Blood Pressure [Le ft Arm] 149/81 H 130/82 138/81 Pulse Oximetry 96 95 Oxygen Delivery Me thod Room Air Room Air Room Air 06/18/22 20:58 06/19/22 00:00 06/19/22 03:47 Temperature 98.5 F 98.3 F 97.7 F Pulse Rate [Pulse Oximeter] 76 77 75 Respiratory Rate 16 16 16 Blood Pressure [Le ft Arm] 143/84 H 135/85 121/79 Pulse Oximetry 97 95 97 Oxygen Delivery Me thod Room Air Room Air Room Air OB - DS: Summary Hospital Course Hospital Course: 32yo , now P4 was induced for gestational htn at 37wks--developed severe preeclampsia d/t BP's criteria during induction. She had long induction but did delivered vaginally. Pt is seen today in routine rounds. Magnesium stopped at 24 hours .? BP's day #1 were in 130's/70's but then overnight and in morning 140's/80's and one 150 range. Last bp last night was 121/79. Pt denies headache currently. She had been significantly fluid up overall since start of her induction based on I/O's, weight and edema. She was given fluid restriction to help with fluid status. Lasix started (plan for continuing for 5 days) and Labetolo started for bp. Currently taking 100 mg bid. Magnesium stopped, no further IVF. She has not had any sob. Per nursing, pt appears to be diuresing now I/O she has 550 in deficit according to flow sheet. Her weight today stable today. There was documentation of wt going from 120kg up to 128kg but thought to be documenation error. Recent wt 122kg They are eager to go home today. pt without concerns. she is ambulating, eating, voiding, stooling without problems. Patient comments OB post-: no complaints [place] infant status: going well Infant Gender: Female Time Spent with Patient Time attestation: Total time spent providing and/or coordinating discharge services: Discharge Plan Discharge Disposition: Home, Self-Care Date of Admission: 06/14/22 16:29 Attending Provider on Discharge: Erlinda Oshea Primary Care Provider: Provider,Not a Local Condition: Improved Anticipated Discharge Date/Time: 06/19/22 16:00 Discharge Medications: New docusate sodium 100 mg Capsule 100 mg PO BID MDD 200mg/24 hours PRN (Reason: stool) 30 Days Qty: 60 0RF furosemide 20 mg Tablet 20 mg PO DAILY 3 Days Qty: 3 0RF labetalol 100 mg Tablet 100 mg PO BID Qty: 30 0RF acetaminophen 500 mg Tablet 1,000 mg PO Q6H PRN30 Days Qty: 30 0RF labetalol 100 mg Tablet 200 mg PO TID Qty: 90 0RF nifedipine 30 mg Tablet Extended Release 24hr 60 mg PO DAILY Qty: 30 0RF Continued fluoxetine 40 mg capsule 40 mg PO QAM Qty: 30 0RF aspirin [Adult Low Dose Aspirin] 81 mg tablet,delayed release (DR/EC) 81 mg PO QDAY Qty: 30 0RF famotidine 20 mg tablet 20 mg PO QDAY Qty: 30 0RF PNV cmb#95-ferrous fumarate-FA [ Multivitamins] 28 mg iron- 800 mcg tablet 1 tab PO DAILY Qty: 30 0RF Discharge Orders: Discharge Order (Routine); Ordered 06/20/22 Ordered By: Erlinda Oshea Patient Education: OB Vaginal/Breast Feeding Activity Level: Activity as Tolerated Discharge Diet: Regular Follow Up Appointments: Provider,Not a Local [Primary Care Provider] - (See Dr Santiago Tuesday at scheduled visit ) Forms: [employer] Info Instructions Discharge Comments: Keep apt with Dr Santiago on Tuesday06/22/22. Please check your blood pressures at home can call if they are running above 140/90 or if develop a new headache or increased swelling.
[2022-06-19] MEDS: DOCUSATE SODIUM 100 MG CAPSULE PO ×2 (08:53→20:36)
[2022-06-19] MEDS: FLUOXETINE HCL 20 MG CAPSULE 40 MG PO (08:53)
[2022-06-19] MEDS: LABETALOL HCL 100 MG TABLET PO ×2 (08:53→13:12)
[2022-06-19] MEDS: FUROSEMIDE 20 MG TABLET PO (08:53)
[2022-06-19] MEDS: ACETAMINOPHEN 500 MG TABLET 1000 MG PO (16:59)
[2022-06-19] MEDS: NIFEdipine 30 MG TAB.ER.24 PO (18:23)
[2022-06-19] MEDS: LABETALOL HCL 100 MG TABLET 200 MG PO (20:37)
[2022-06-20 01:26] VITALS: BP 138/83; PULSE 88; RESP 16; TEMP 36.6; O2SAT 96
[2022-06-20 04:30] VITALS: BP 142/85; PULSE 93; RESP 15; TEMP 36.9; O2SAT 96
[2022-06-20 07:58] VITALS: BP 135/84; PULSE 82; RESP 16; TEMP 36.8; O2SAT 96
[2022-06-20] MEDS: LABETALOL HCL 100 MG TABLET 200 MG PO ×2 (09:15→13:53)
[2022-06-20] MEDS: DOCUSATE SODIUM 100 MG CAPSULE PO (09:15)
[2022-06-20] MEDS: FUROSEMIDE 20 MG TABLET PO (10:09)
[2022-06-20] MEDS: FLUOXETINE HCL 20 MG CAPSULE 40 MG PO (10:09)
--- NOTE | 2022-06-20 11:46 | PM.OBDSVD1 ---
DS: Providers Provider Date Seen: 06/20/22 Date of admission: 06/14/22 16:29 Primary care physician: Not a Local Provider Admitting Clinician: Maria Elena Santiago DO Attending Physician on discharge: Maria Elena Santiago DO DS: Diagnosis Discharge Diagnosis (1) Severe preeclampsia: Status: Acute (2) (normal spontaneous vaginal delivery): Status: Acute (3) Gestational hypertension: Status: Acute Exam Narrative: Exam Narrative: HEENT: Eyes: no scleral icterus redness Ears: normal external ears Nose: no drainage Neck: normal Heart RRR no murmur Lungs: clear Abdomen: pos bowel sounds exam Skin: pink Ext: 2+ pitting edema but decreased from yesterday. Mental status: appropriate Const: Vital Signs, click to edit/add: Vital Signs - 24 hr 06/19/22 11:50 06/19/22 14:49 06/19/22 16:52 Temperature 98.4 F 98.2 F 98.4 F Pulse Rate [Pulse Oximeter] 79 81 89 Respiratory Rate 16 16 16 Blood Pressure [Le ft Arm] 148/85 H 138/81 147/87 H Pulse Oximetry 97 96 96 Oxygen Delivery Me thod Room Air Room Air Room Air 06/19/22 21:08 06/20/22 01:26 06/20/22 04:30 Temperature 98.1 F 97.9 F 98.4 F Pulse Rate [Pulse Oximeter] 93 88 93 Respiratory Rate 15 16 15 Blood Pressure [Le ft Arm] 150/82 H 138/83 142/85 H Pulse Oximetry 97 96 96 Oxygen Delivery Me thod Room Air Room Air Room Air 06/20/22 07:58 Temperature 98.3 F Pulse Rate [Pulse Oximeter] 82 Respiratory Rate 16 Blood Pressure [Le ft Arm] 135/84 Pulse Oximetry 96 Oxygen Delivery Me thod Room Air OB - DS: Summary Hospital Course Hospital Course: 32yo , now P4 was induced for gestational htn at 37wks--developed severe preeclampsia d/t BP's criteria during induction. She had long induction but did delivered vaginally. Magnesium stopped at 24 hours .? BP's day #1 were in 130's/70's but then overnight and in morning 140's/80's and one 150 range.?She had been significantly fluid up overall since start of her induction based on I/O's, weight and edema. She was given fluid restriction to help with fluid status. Lasix started (plan for continuing for 5 days) and Labetolo started for bp.? PPD#2 bp was 121/79 in night but were higher when she was up and around bp 147/87 150/82. Hoped pt was going to be able to dc yesterday but with bp up kept over night and Labetolol was increased to 200 mg bid and Nifedipine XL 30 mg was added. Today Pt has her normal prepregnancy headache today. Currently taking Labetolol 200 mg bid. Nifedipine XL 30 mg was started yesterday. She continues to have good urine output with out greater (negative 1310 currently) than input and wt is down again today .? Since bp still not below desired goal of 140/90 will increase Labetolol to 200 mg tid and NifedipineXL to 60 mg. If doing well and bp below goal will discharge pt tonight with plan of taking home bp's and reporting to Dr Santiago tomorrow. Pt without concerns. she is ambulating, eating, voiding, stooling without problems. [place] Infant Gender: Female Time Spent with Patient Time attestation: Total time spent providing and/or coordinating discharge services: Discharge Plan Discharge Disposition: Home, Self-Care Date of Admission: 06/14/22 16:29 Attending Provider on Discharge: Erlinda Oshea Primary Care Provider: Provider,Not a Local Condition: Improved Anticipated Discharge Date/Time: 06/19/22 16:00 Discharge Medications: New docusate sodium 100 mg Capsule 100 mg PO BID MDD 200mg/24 hours PRN (Reason: stool) 30 Days Qty: 60 0RF furosemide 20 mg Tablet 20 mg PO DAILY 3 Days Qty: 3 0RF labetalol 100 mg Tablet 100 mg PO BID Qty: 30 0RF acetaminophen 500 mg Tablet 1,000 mg PO Q6H PRN30 Days Qty: 30 0RF Continued fluoxetine 40 mg capsule 40 mg PO QAM Qty: 30 0RF aspirin [Adult Low Dose Aspirin] 81 mg tablet,delayed release (DR/EC) 81 mg PO QDAY Qty: 30 0RF famotidine 20 mg tablet 20 mg PO QDAY Qty: 30 0RF PNV cmb#95-ferrous fumarate-FA [ Multivitamins] 28 mg iron- 800 mcg tablet 1 tab PO DAILY Qty: 30 0RF Discharge Orders: Discharge Order (Routine); Ordered 06/20/22 Ordered By: Erlinda Oshea Patient Education: OB Vaginal/Breast Feeding Activity Level: Activity as Tolerated Discharge Diet: Regular Follow Up Appointments: Provider,Not a Local [Primary Care Provider] - (See Dr Santiago Tuesday at scheduled visit ) Forms: [employer] Info Instructions Discharge Comments: Keep apt with Dr Santiago on Tuesday06/22/22. Please check your blood pressures at home can call if they are running above 140/90 or if develop a new headache or increased swelling.
[2022-06-20 12:01] VITALS: BP 134/84; PULSE 80; RESP 16; TEMP 36.8; O2SAT 96
[2022-06-20] MEDS: NIFEdipine 30 MG TAB.ER.24 60 MG PO (12:04)
[2022-06-20] MEDS: IBUPROFEN 600 MG TABLET PO (12:05)
[2022-06-20 13:54] VITALS: BP 131/81
[2022-06-20 15:11] VITALS: BP 135/83; PULSE 92; RESP 16; O2SAT 97
== END 2022-06-20 16:30 | disposition home or self-care (01) | DRG 560 ==
PROVIDERS: Admitting Provider Family Medicine; Visit Provider Family Medicine
DX: O14.14 Severe pre-eclampsia complicating childbirth (principal); O13.4 Gestational [pregnancy-induced] hypertension without significant proteinuria, complicating childbirth; R51.9 Headache, unspecified; O76 Abnormality in fetal heart rate and rhythm complicating labor and delivery; O99.344 Other mental disorders complicating childbirth; F32.A Depression, unspecified; F41.9 Anxiety disorder, unspecified; G47.33 Obstructive sleep apnea (adult) (pediatric); O99.214 Obesity complicating childbirth; E66.9 Obesity, unspecified; Z3A.36 36 weeks gestation of pregnancy; Z37.0 Single live birth
CPT/HCPCS: 1967; 36415; 59200; 76815; 82565; 82570; 83735; 84156; 84450; 84460; 84520; 85018; 85025; 85027; 85049; 85384; 85610; 85730; 86850; 86900; 86901; 86922; 87635; 88307; A9270; C1726; J0290; J2270; J2370; J2795; J3010; J3475; J7120; P9016

== ENCOUNTER 2023-03-22 07:50 | Outpatient (CLI) | payer BC, SELFPAY | END 2023-03-22 07:51 | disposition home or self-care (01) | LOC: INJ CL 07:51 | PROVIDERS: PCP Physician Assistant Medical; Visit Provider Family Medicine | DX: M54.16 Radiculopathy, lumbar region (principal); M51.36 Other intervertebral disc degeneration, lumbar region | CPT/HCPCS: 62323; J0702; Q9966 ==

== ENCOUNTER 2023-04-24 21:00 | Outpatient (CLI) | payer BC, SELFPAY | END 2023-04-24 21:01 | disposition home or self-care (01) | LOC: SLEEP 21:29 | PROVIDERS: PCP Physician Assistant Medical; Visit Provider Internal Medicine | DX: G47.33 Obstructive sleep apnea (adult) (pediatric) (principal) | CPT/HCPCS: 95811 ==

== ENCOUNTER 2023-08-29 12:12 | Outpatient (RCR) | payer BC, SELFPAY | END 2023-12-27 23:59 | disposition home or self-care (01) | PROVIDERS: PCP Physician Assistant Medical; Visit Provider Family Medicine | DX: M54.41 Lumbago with sciatica, right side (principal); Z74.09 Other reduced mobility; Z51.89 Encounter for other specified aftercare | CPT/HCPCS: 97110; 97162 ==